=== PATIENT | female | born 1930 | race Hispanic/Latino ===

== ENCOUNTER 2018-06-07 11:49 | Inpatient (IN) | payer MEDICARE ==
[2018-06-07] MEDS ORDERED: Albuterol-Ipratrop 3 mg / 0.5 (3 ml) UD ONE ×2 (12:07→15:55)
[2018-06-07] MEDS ORDERED: Sodium Chloride 0.9% 1,000 ML IV STA (12:16)
[2018-06-07 12:35] LABS: VENOUS BLOOD GAS BASE EXCESS 1.6 mmol/L (0.0-2.0); VENOUS BLOOD GAS PCO2 48 mmHg (40-60); VENOUS BLOOD GAS PO2 27 mm/Hg (30-55); VENOUS BLOOD PH 7.37 (7.32-7.43)
[2018-06-07 12:44] LABS: BASO % 0.2 % (0.0-2.0); LYMPH # 0.7 K/uL (1.0-4.3); LYMPH % 4.9 % (20.0-40.0); MEAN CELL VOLUME 89.4 fl (81.0-99.0); MEAN CORPUSCULAR HEMOGLOBIN 29.5 pg (27.0-31.0); MEAN CORPUSCULAR HGB CONC 32.9 g/dL (33.0-37.0); MEAN PLATELET VOLUME 8.5 fl (7.2-11.7); MONO # 0.9 K/uL (0.0-0.8); MONO % 5.9 % (0.0-10.0); PLATELET COUNT 147 K/uL (130-400); RBC 4.41 Mil/uL (3.80-5.20); RED CELL DISTRIBUTION WIDTH 14.7 % (11.5-14.5); WHITE BLOOD COUNT 14.7 K/uL (4.8-10.8)
[2018-06-07] MEDS ORDERED: Azithromycin 500 MG in Sodium Chloride 0.9% 250 ML IVPB STA (12:44)
[2018-06-07] MEDS ORDERED: Albuterol-Ipratrop 3 mg / 0.5 (3 ml) UD INH STA (12:45)
[2018-06-07] MEDS ORDERED: Azithromycin 500 MG IV IVPB ONE (12:48)
--- NOTE | 2018-06-07 12:48 | ED PDOC ---
HPI: CCC, URI, Sore Throat Time Seen by Provider: 06/07/18 12:11 Chief Complaint (Nursing): Cough, Cold, Congestion Chief Complaint (Provider): Cough History Per: Patient History/Exam Limitations: no limitations Onset/Duration Of Symptoms: Days Current Symptoms Are (Timing): Still Present Additional Complaint(s): 87yo female, with history of hypertension, high cholesterol, diabetes, sent to ER via ambulance from her PMD's office for penumonia workup. Patient reports a 5 day history of cough and shortness of breath, went to see her PMD this morning and was sent here for further evaluation. Currently, patient denies any associated chest pain, nausea, vomiting, diarrhea or other discomfort. She denies a fever as well but states she hasn't checked her temperature. Patient is compliant with PMD follow up as well as her daily medications. PMD: Dr. Boyd Past Medical History Reviewed: Historical Data, Nursing Documentation, Vital Signs Vital Signs: Last Vital Signs Temp 99.3 F 06/07/18 11:52 Pulse 122 H 06/07/18 11:52 Resp 22 06/07/18 11:52 BP 144/62 06/07/18 11:52 Pulse Ox 99 06/07/18 11:52 Primary Care Provider: Bobby Kilgore - Medical History PMH: Diabetes, HTN, Hypercholesterolemia Denies: Chronic Kidney Disease - Surgical History Surgical History: No Surg Hx - Family History Family History: States: Unknown Family Hx - Home Medications Home Medications: Ambulatory Orders Medication Instructions Recorded Famotidine [Pepcid] 20 mg PO DAILY 10/16/14 Pioglitazone [Actos] 15 mg PO DAILY 10/16/14 Simvastatin [Zocor] 40 mg PO HS 10/16/14 Aspirin [Ecotrin] 81 mg PO DAILY 06/07/18 Gabapentin [Neurontin] 100 mg PO Q8 06/07/18 Multivitamin [Multi-Vitamin Daily] 1 tab PO DAILY 06/07/18 [place]-3 Fatty Acids/Fish Oil [Fish 1 cap PO DAILY 06/07/18 Oil 1,000 mg Capsule] amLODIPine [Norvasc] 10 mg PO DAILY 06/07/18 - Allergies Allergies/Adverse Reactions: Allergies Allergy/AdvReac Type Severity Reaction Status Date / Time No Known Allergies Allergy Verified 06/07/18 11:52 Review of Systems ROS Statement: Except As Marked, All Systems Reviewed And Found Negative Constitutional: Negative for: Fever Cardiovascular: Negative for: Chest Pain Respiratory: Positive for: Cough, Shortness of Breath Gastrointestinal: Negative for: Nausea, Vomiting Physical Exam - Reviewed Nursing Documentation Reviewed: Yes Vital Signs Reviewed: Yes - Physical Exam Appears: Positive for: Non-toxic Head Exam: Positive for: ATRAUMATIC, NORMAL INSPECTION, NORMOCEPHALIC Skin: Positive for: Normal Color Eye Exam: Positive for: Normal appearance Neck: Positive for: Supple Cardiovascular/Chest: Positive for: Tachycardia (regular rate) Respiratory: Positive for: Crackles (diffuse), Other (tachypneic) Gastrointestinal/Abdominal: Positive for: Soft Back: Positive for: Normal Inspection Extremity: Positive for: Normal ROM. Negative for: Pedal Edema Neurological/Psych: Positive for: Awake, Alert, Normal Tone - Laboratory Results Result Diagrams: 06/07/18 12:26 06/07/18 12:26 Lab Results: pO2 27 mm/Hg (30-55) L 06/07/18 12:18 VBG pH 7.37 (7.32-7.43) 06/07/18 12:18 VBG pCO2 48 mmHg (40-60) 06/07/18 12:18 VBG HCO3 24.9 mmol/L 06/07/18 12:18 VBG Total CO2 29.2 mmol/L (22-28) H 06/07/18 12:18 VBG O2 Sat (Calc) 58.4 % (40-65) 06/07/18 12:18 VBG Base Excess 1.6 mmol/L (0.0-2.0) 06/07/18 12:18 VBG Potassium 3.8 mmol/L (3.6-5.2) 06/07/18 12:18 Sodium 133.0 mmol/L (132-148) 06/07/18 12:18 Chloride 95.0 mmol/L (98-107) L 06/07/18 12:18 Glucose 174 mg/dL (65-105) H 06/07/18 12:18 Lactate 2.0 mmol/L (0.7-2.1) 06/07/18 12:18 FiO2 21.0 % 06/07/18 12:18 - ECG O2 Sat by Pulse Oximetry: 99 (RA) Pulse Ox Interpretation: Normal - Core Measure Core Measure Indicators: Code Sepsis - Critical Care Total Time (In Min): 60 Documented Critical Care: Time excludes all time spent performint seperately billable procedures Medical Decision Making Medical Decision Making: Workup for pneumonia Patient meets sepsis criteria due to tachypnea, tachycardia, and suspected source due of pneumonia -- Sepsis workup including VBG Patient started on gentle fluids opposed to bolus based on auscultation of fluid in lungs as well as cardiac risk Will increase fluids if BNP and CXR do not show signs of fluid overload 1246 WBC is 14 Lactate 2 Patient meets sepsis criteria but not severe sepsis Patient receiving nebulizer treatment as well as IV antibiotics, patient adm itted under hospitalist. [address] Garrett, who accepts patient for admission to telemetry ScribeAttestation: Documented byShruti Wu, acting as a scribe for Joy Stack MD. Provider ScribeAttestation: All medical record entries made by the Scribe were at my direction and personally dictated by me. I have reviewed the chart and agree that the record accurately reflects my personal performance of the history, physical exam, medical decision making, and the department course for this patient. I have also personally directed, reviewed, and agree with the discharge instructions and disposition. Disposition - Clinical Impression Clinical Impression: Cough, CAD (coronary artery disease), Pneumonia - Disposition Disposition Time: 13:10 Condition: GUARDED
[2018-06-07 12:51] LABS: INR 1.1; PROTHROMBIN TIME 12.7 Seconds (9.8-13.1)
[2018-06-07 13:01] LABS: BLOOD UREA NITROGEN 16 mg/dl (7-17); CALCIUM 9.4 mg/dL (8.4-10.2); GFR NON-AFRICAN AMERICAN > 60
[2018-06-07 13:13] LABS: B-TYPE NATRIURETIC PEPTIDE 764 pg/ml (0-900)
--- NOTE | 2018-06-07 13:17 | RAD ---
Date of service: 06/07/2018 HISTORY: possible admission COMPARISON: 10/16/2014 TECHNIQUE: 1 view obtained. FINDINGS: LUNGS: No active pulmonary disease. PLEURA: Nonspecific elevation of right hemidiaphragm. No pneumothorax or pleural effusion. CARDIOVASCULAR: No aortic atherosclerotic calcification present. Normal cardiac size. No pulmonary vascular congestion. OSSEOUS STRUCTURES: No significant abnormalities. VISUALIZED UPPER ABDOMEN: Normal. OTHER FINDINGS: None. IMPRESSION: Nonspecific elevation of right hemidiaphragm. Otherwise unremarkable.
[2018-06-07] MEDS ORDERED: cefTRIAXone (Rocephin) 1 gm Inj ONE (14:06)
--- NOTE | 2018-06-07 14:08 | CP.PCM.HP ---
History of Present Illness - History of Present Illness History of Present Illness: [place]: [id number] Pt is an 87 yo F with a pmhx of CAD ([place] 11 yrs ago as per chart), HTN, DM, HLD presented with SOB, productive cough yellow/mild bloody sputum, chest discomfort for 4-5 days, fever of 101 last night, also reported feeling tired and weak. Pt went to her PMD today who sent her here. Pt had a recent URI 2-3 weeks ago and reports she completed her antibiotics, reports she takes her medications. Denies nausea, vomiting, abdominal pain, diarrhea, constipation, dysuria. Pt mildly confused, at beside with son. PMD: Dr. Bobby Kilgore Code status: Unknown Full PMHX: CAD ([place] 11 yrs ago), HTN, DM, HLD Meds: Norvasc 10mg QD, ASA 81mg QD, Pepcid 20mg QD, Neurontin 100mg Q8h, Pioglitazone 15mg QD, Simvastatin 40mg PO HS, [place] 3 fish oil, Multivitamin Allergies: NKDA Fhx: Mom pnemonia at age 38 Surg hx: 2012-Stomach cellulitis abscess Social Hx: Denies tobacco or hx of tobacco, alcohol or drug use. ED course: WBC 14.7, VBG lactate 2, Troponin x1 neg, Pro BNP 764, CXR, nebulizer, ceftriaxone x1, azithromycin x1, IVF, EKG Present on Admission - Present on Admission Any Indicators Present on Admission: No History of DVT/PE: No History of Uncontrolled Diabetes: No Urinary Catheter: No Decubitus Ulcer Present: No Review of Systems - Review of Systems Systems not reviewed;Unavailable: Unstable Vital Signs - Constitutional Constitutional: Fatigue, Weakness - Cardiovascular Cardiovascular: Chest Pain - Respiratory Respiratory: Cough, Dyspnea, Wheezing Past Patient History - Infectious Disease Hx of Infectious Diseases: None - Tetanus Immunizations Tetanus Immunization: Unknown - Past Medical History & Family History Past Medical History?: Yes - Past Social History Smoking Status: Never Smoked Alcohol: None Drugs: Denies - CARDIAC Hx Hypercholesterolemia: Yes Hx Hypertension: Yes - PULMONARY Hx Respiratory Disorders: No - NEUROLOGICAL Hx Neurological Disorder: No - HEENT Hx HEENT Problems: No - RENAL Hx Chronic Kidney Disease: No - ENDOCRINE/METABOLIC Hx Endocrine Disorders: No - HEMATOLOGICAL/ONCOLOGICAL Hx Blood Disorders: No - INTEGUMENTARY Hx Dermatological Problems: No - MUSCULOSKELETAL/RHEUMATOLOGICAL Hx Musculoskeletal Disorders: No - GASTROINTESTINAL Hx Gastrointestinal Disorders: No - GENITOURINARY/GYNECOLOGICAL Hx Genitourinary Disorders: No - PSYCHIATRIC Hx Psychophysiologic Disorder: No Hx Substance Use: No - SURGICAL HISTORY Hx Surgeries: Yes Other/Comment: I&D of abdominal abscess, 2012 - ANESTHESIA Hx Anesthesia: Yes Hx Anesthesia Reactions: No Meds Allergies/Adverse Reactions: Allergies Allergy/AdvReac Type Severity Reaction Status Date / Time No Known Allergies Allergy Verified 06/07/18 11:52 Physical Exam - Constitutional Appears: Toxic, No Acute Distress - Head Exam Head Exam: ATRAUMATIC, NORMAL INSPECTION, NORMOCEPHALIC Additional comments: 4 L NC - Eye Exam Eye Exam: EOMI - ENT Exam ENT Exam: Mucous Membranes Moist - Respiratory Exam Respiratory Exam: Accessory Muscle Use, Rhonchi (Coarse), Wheezes, Stridor (expiratory). absent: Rales - Cardiovascular Exam Cardiovascular Exam: Tachycardia, +S1, +S2 - GI/Abdominal Exam GI & Abdominal Exam: Normal Bowel Sounds, Soft. absent: Tenderness - Extremities Exam Extremities exam: Positive for: normal inspection. Negative for: pedal edema - Neurological Exam Neurological exam: Alert Results - Vital Signs Recent Vital Signs: Last Vital Signs Temp 99.3 F 06/07/18 11:52 Pulse 122 H 06/07/18 11:52 Resp 22 06/07/18 11:52 BP 144/62 06/07/18 11:52 Pulse Ox 99 06/07/18 13:17 - Labs Result Diagrams: 06/07/18 12:26 06/07/18 12:26 Labs: Laboratory Results - last 24 hr 06/07/18 06/07/18 06/07/18 12:18 12:26 12:26 WBC 14.7 H RBC 4.41 Hgb 13.0 Hct 39.4 MCV 89.4 D MCH 29.5 MCHC 32.9 L RDW 14.7 H Plt Count 147 MPV 8.5 Neut % (Auto) 89.0 H Lymph % (Auto) 4.9 L [place] % (Auto) 5.9 Eos % (Auto) 0.0 Baso % (Auto) 0.2 Neut # (Auto) 13.0 H Lymph # (Auto) 0.7 L [place] # (Auto) 0.9 H Eos # (Auto) 0.0 Baso # (Auto) 0.0 PT INR APTT pO2 27 L VBG pH 7.37 VBG pCO2 48 VBG HCO3 24.9 VBG Total CO2 29.2 H VBG O2 Sat (Calc) 58.4 VBG Base Excess 1.6 VBG Potassium 3.8 Sodium 133.0 133 Chloride 95.0 L 95 L Glucose 174 H Lactate 2.0 FiO2 21.0 Potassium 3.8 Carbon Dioxide 25 Anion Gap 17 BUN 16 Creatinine 0.8 Est GFR ( Amer) > 60 Est GFR (Non-Af Amer) > 60 Random Glucose 165 H Calcium 9.4 Troponin I 0.0480 NT-Pro-B Natriuret Pep 764 Venous Blood Potassium 3.8 Influenza Typ A,B (EIA) 06/07/18 06/07/18 12:26 12:26 WBC RBC Hgb Hct MCV MCH MCHC RDW Plt Count MPV Neut % (Auto) Lymph % (Auto) [place] % (Auto) Eos % (Auto) Baso % (Auto) Neut # (Auto) Lymph # (Auto) [place] # (Auto) Eos # (Auto) Baso # (Auto) PT 12.7 INR 1.1 APTT 32.0 pO2 VBG pH VBG pCO2 VBG HCO3 VBG Total CO2 VBG O2 Sat (Calc) VBG Base Excess VBG Potassium Sodium Chloride Glucose Lactate FiO2 Potassium Carbon Dioxide Anion Gap BUN Creatinine Est GFR ( Amer) Est GFR (Non-Af Amer) Random Glucose Calcium Troponin I NT-Pro-B Natriuret Pep Venous Blood Potassium Influenza Typ A,B (EIA) Negative for flu a/b Assessment & Plan - Assessment and Plan (Free Text) Assessment: Pt is an 87 yo F with a pmhx of CAD ([place] 11 yrs ago as per chart), HTN, DM, HLD presented with SOB, productive cough yellow/mild bloody sputum, chest discomfort for 4-5 days, fever of 101 admitted for Pneumonia Sepsis (POA) secondary to pneumonia tachy 116, WBC 14.7, Bands 4, lactate 2 admit to tele, monitor VSS 2 L NC, Duonebs Q4 PRN, IVF's Ceftriaxone 1gm IVPB QD, Azithromycin 500mg IVPB QD, Mucinex, s/p ceftriaxone and azithromycin x1 CXR- non specific elevation of R hemidiaphragm, otherwise unremarkable Ordered Chest CT, Sputum cx, Blood cx, Troponins x2 F/u labs and Chest CT in AM Leukocytosis with Bandemia 2/2 to pneumonia WBC 14.7, Bands 4 F/u AM labs HTN chronic c/w home meds DM chronic, POC 165 sliding scale coverage accuchecks hypoglycemic protocol Ordered Hga1c c/w pioglitazone HLD chronic ordered lipid panel c/w home meds Diet Diabetic/heart healthy DVT PPX SCD now Lovenox 40mg SC in AM
[2018-06-07 14:12] LABS: ANISOCYTOSIS SLIGHT; BANDS 4 % (0-2); LYMPHOCYTE 3 % (20-50); MONOCYTE 7 % (0-10); NEUTROPHIL 86 % (42-75); PLATELET ESTIMATE NORMAL (NORMAL); TOTAL CELLS COUNTED 100
[2018-06-07] MEDS ORDERED: Sodium Chloride 3% for Inhalation 4 ML VIAL.NEB IH PRN (14:19)
[2018-06-07] MEDS ORDERED: Glucagon Recombinant 1 mg Inj IM PRN (14:21)
[2018-06-07] MEDS ORDERED: Dextrose 50% SYRINGE Inj (50 ml) IV PRN (14:21)
[2018-06-07] MEDS ORDERED: Sodium Chloride 0.9% 50 ML IV ONE (14:38)
[2018-06-07] MEDS ORDERED: Iodixanol 320 MG/ML 100 ML BOTTLE IV ONE (14:38)
--- NOTE | 2018-06-07 15:34 | CT ---
Date of service: 06/07/2018 PROCEDURE: CT Chest with contrast (Pulmonary Angiogram) HISTORY: Pneumonia COMPARISON: June 07, 2018. Single-view chest TECHNIQUE: Axial computed tomography images were obtained of the chest in the pulmonary arterial phase of enhancement. Coronal and sagittal reformatted images were created and reviewed. Intravenous contrast dose: 60 cc Visipaque 320. Mean Hounsfield value in the main pulmonary artery: 213.66 Radiation dose: Total exam DLP = 355.15 mGy-cm. This CT exam was performed using one or more of the following dose reduction techniques: Automated exposure control, adjustment of the mA and/or kV according to patient size, and/or use of iterative reconstruction technique. FINDINGS: PULMONARY ARTERIES: Unremarkable. No pulmonary embolism. AORTA: No acute findings. No thoracic aortic aneurysm. No atherosclerotic calcification or mural plaque present. LUNGS: Multifocal infiltrates including right upper lobe and multiple segments of the left lower lobe. PLEURAL SPACES: Unremarkable. No effusion or pneumothorax. HEART: Unremarkable. No cardiomegaly. No significant pericardial effusion. LYMPH NODES: No lymphadenopathy. BONES, CHEST WALL: Unremarkable. No fracture or destructive lesion OTHER FINDINGS: Unremarkable. IMPRESSION: Unremarkable CT pulmonary angiogram. No pulmonary embolus. Multifocal infiltrates most pronounced changes basilar segment left lower lobe. Additional right upper and right lower lobe infiltrates likely represent multifocal pneumonia.
[2018-06-07] MEDS: Albuterol-Ipratrop 3 mg / 0.5 (3 ml) UD INH PRN (15:58)
[2018-06-07 16:27] LABS: ABG ALLEN TEST YES; ARTERIAL BLOOD GAS HCO3 25.6 mmol/L (21-28); ARTERIAL BLOOD GAS HEMOGLOBIN 12.9 g/dL (11.7-17.4); ARTERIAL BLOOD GAS O2 CAPACITY 17.1 mL/dL (16-24); ARTERIAL BLOOD GAS O2 CONTENT 16.4 ML/dL (15-23); ARTERIAL BLOOD GAS O2 SAT 96.1 % (95-98); ARTERIAL BLOOD GAS PCO2 37 mm/Hg (35-45); ARTERIAL BLOOD GAS PH 7.44 (7.35-7.45); ARTERIAL BLOOD GAS PO2 57 mm/Hg (80-100); ARTERIAL BLOOD GAS TCO2 26.2 mmol/L (22-28)
[2018-06-07] MEDS: Insulin Regular 100 units/ml SC SCH ×2 (17:16→22:00)
[2018-06-07 17:19] LABS: SQUAMOUS EPITHIAL < 1 /hpf (0-5); URINE BILIRUBIN NEGATIVE (NEGATIVE); URINE BLOOD SMALL (NEGATIVE); URINE CLARITY CLEAR (Clear); URINE COLOR YELLOW (YELLOW); URINE GLUCOSE (UA) NEG (NEGATIVE); URINE LEUKOCYTE ESTERASE NEG Leu/uL (Negative); URINE PROTEIN 100 mg/dL (NEGATIVE); URINE UROBILINOGEN 0.2-1.0 mg/dL (0.2-1.0)
[2018-06-07] MEDS ORDERED: methylPREDNISolone 125 MG in Sodium Chloride 0.9% 50 ML IVPB ONE (17:32)
--- NOTE | 2018-06-07 18:59 | CARD ---
APPROVED REPORT Date of service: 06/07/2018 EKG Measurement Heart [id number] IN [id number] <Conclusion> Sinus tachycardia Non specific T-wave changes Abnormal ECG
[2018-06-07] MEDS: Albuterol-Ipratrop 3 mg / 0.5 (3 ml) UD INH SCH (19:31)
[2018-06-07] MEDS: guaiFENesin 600 mg ER Tab PO SCH (21:50)
[2018-06-08 05:26] LABS: BASO % 0.1 % (0.0-2.0); HEMOGLOBIN 12.6 g/dL (12.0-16.0); LYMPH # 1.2 K/uL (1.0-4.3); LYMPH % 6.5 % (20.0-40.0); MEAN CELL VOLUME 91.3 fl (81.0-99.0); MEAN CORPUSCULAR HEMOGLOBIN 29.7 pg (27.0-31.0); MEAN CORPUSCULAR HGB CONC 32.5 g/dL (33.0-37.0); MEAN PLATELET VOLUME 8.8 fl (7.2-11.7); MONO # 0.5 K/uL (0.0-0.8); MONO % 2.9 % (0.0-10.0); NEUT # 16.9 K/uL (1.8-7.0); NEUT % 90.5 % (50.0-75.0); RBC 4.26 Mil/uL (3.80-5.20); RED CELL DISTRIBUTION WIDTH 15.3 % (11.5-14.5); WHITE BLOOD COUNT 18.7 K/uL (4.8-10.8)
[2018-06-08 05:38] LABS: ALB/GLOB RATIO 1.4 (1.0-2.1); ALBUMIN 3.9 g/dL (3.5-5.0); ALT/SGPT 21 U/L (9-52); AST/SGOT 36 U/L (14-36); BLOOD UREA NITROGEN 22 mg/dl (7-17); CALCIUM 9.1 mg/dL (8.4-10.2); GFR NON-AFRICAN AMERICAN > 60; HDL CHOLESTEROL 48 MG/DL (30-70)
[2018-06-08 05:50] LABS: LDL CHOLESTEROL 54 mg/dL (0-129)
[2018-06-08] MEDS: Albuterol-Ipratrop 3 mg / 0.5 (3 ml) UD INH SCH ×4 (07:17→19:16)
[2018-06-08] MEDS: Insulin Regular 100 units/ml SC SCH ×3 (08:53→17:32)
[2018-06-08] MEDS: Enoxaparin 40 mg Syringe SC SCH (08:54)
[2018-06-08] MEDS: guaiFENesin 600 mg ER Tab PO SCH ×2 (08:54→21:29)
[2018-06-08] MEDS: Omega-3-Acid Ethyl Esters 1 GM Cap PO SCH (08:54)
[2018-06-08] MEDS: Pantoprazole 40 mg EC Tab PO SCH (08:56)
[2018-06-08] MEDS: Azithromycin 500 MG in Sodium Chloride 0.9% 250 ML IVPB SCH (08:57)
[2018-06-08] MEDS: Multivitamin With Minerals Tab PO SCH (08:57)
--- NOTE | 2018-06-08 12:02 | CP.PCM.PN ---
Subjective - Date & Time of Evaluation Date of Evaluation: 06/08/18 Time of Evaluation: 09:55 - Subjective Subjective: Patient seen and examined this AM, daughter is at bedside. Patient c/o feeling weaker ans as per daughter patient walks at home with cane. Denies YANCEY, fever, SOB at present. Objective - Vital Signs/Intake and Output Vital Signs (last 24 hours): Temp Pulse Resp BP Pulse Ox 96.9 F L 99 H 20 132/75 93 L 06/08/18 08:30 06/08/18 08:55 06/08/18 11:26 06/08/18 08:55 06/08/18 08:30 - Medications Medications: Current Medications Acetaminophen (Tylenol 325mg Tab) 650 mg PO Q6 PRN PRN Reason: Pain, Mild (1-3) Last Admin: 06/07/18 15:56 Dose: 650 mg Acetaminophen (Tylenol 325mg Tab) 650 mg PO Q6 PRN PRN Reason: Fever >100.4 F Albuterol/Ipratropium (Duoneb 3 Mg/0.5 Mg (3 Ml) Ud) 3 ml INH RQ4 PRN PRN Reason: Shortness of Breath Last Admin: 06/07/18 15:58 Dose: 3 ml Albuterol/Ipratropium (Duoneb 3 Mg/0.5 Mg (3 Ml) Ud) 3 ml INH RQID OWEN Last Admin: 06/08/18 11:26 Dose: 3 ml Amlodipine Besylate (Norvasc) 10 mg PO DAILY [facility] Last Admin: 06/08/18 08:55 Dose: 10 mg Aspirin (Ecotrin) 81 mg PO DAILY [facility] Last Admin: 06/08/18 08:53 Dose: 81 mg Atorvastatin Calcium (Lipitor) 20 mg PO HS [facility] Last Admin: 06/07/18 21:50 Dose: 20 mg Dextrose (Dextrose 50% Inj) 0 ml IV STAT PRN; Protocol PRN Reason: Hypoglycemia Protocol Dextrose (Glutose 15) 0 gm PO ONCE PRN; Protocol PRN Reason: Hypoglycemia Protocol Enoxaparin Sodium (Lovenox) 40 mg SC DAILY [facility]; Protocol Last Admin: 06/08/18 08:54 Dose: 40 mg Famotidine (Pepcid) 20 mg PO DAILY [facility] Last Admin: 06/08/18 08:56 Dose: 20 mg Gabapentin (Neurontin) 100 mg PO Q8 [facility] Last Admin: 06/08/18 08:55 Dose: 100 mg Glucagon (Glucagen Diagnostic Kit) 0 mg IM STAT PRN; Protocol PRN Reason: Hypoglycemia Protocol Guaifenesin (Mucinex La) 600 mg PO Q12 [facility] Last Admin: 06/08/18 08:54 Dose: 600 mg Ceftriaxone Sodium 1 gm/ (Sodium Chloride) 100 mls @ 100 mls/hr IVPB DAILY [facility]; Protocol Last Admin: 06/08/18 08:57 Dose: 100 mls/hr Azithromycin 500 mg/ Sodium (Chloride) 250 mls @ 250 mls/hr IVPB DAILY [facility]; Protocol Last Admin: 06/08/18 08:57 Dose: 250 mls/hr Insulin Human Regular (Humulin R) 0 units SC ACHS [facility]; Protocol Last Admin: 06/08/18 08:53 Dose: 1 unit Multivitamins/Minerals (Therapeutic-M Tab) 1 tab PO DAILY [facility] Last Admin: 06/08/18 08:57 Dose: 1 tab [id number] Ethyl Esters (Lovaza) 1 gm PO DAILY [facility] Last Admin: 06/08/18 08:54 Dose: 1 gm Ondansetron HCl (Zofran Inj) 4 mg IVP Q6 PRN PRN Reason: Nausea/Vomiting Pantoprazole Sodium (Protonix Ec Tab) 40 mg PO DAILY [facility] Last Admin: 06/08/18 08:56 Dose: 40 mg Pioglitazone HCl (Actos) 15 mg PO DAILY [facility] Last Admin: 06/08/18 08:52 Dose: 15 mg - Labs Labs: 06/08/18 04:20 06/08/18 04:20 PT 12.7 Seconds (9.8-13.1) 06/07/18 12:26 INR 1.1 06/07/18 12:26 APTT 32.0 Seconds (25.6-37.1) 06/07/18 12:26 - Constitutional Appears: No Acute Distress - Head Exam Head Exam: ATRAUMATIC, NORMOCEPHALIC - Eye Exam Eye Exam: EOMI - ENT Exam ENT Exam: Mucous Membranes Moist - Respiratory Exam Respiratory Exam: Decreased Breath Sounds (BS decreased to the bases), Rales (bilateral rales noted) - Cardiovascular Exam Cardiovascular Exam: REGULAR RHYTHM, +S1, +S2 - GI/Abdominal Exam GI & Abdominal Exam: Soft. absent: Tenderness - Extremities Exam Extremities Exam: absent: Pedal Edema - Neurological Exam Neurological Exam: Alert, Awake - Skin Skin Exam: Normal Color, Warm Assessment and Plan - Assessment and Plan (Free Text) Assessment: Pt is an 87 yo F with a pmhx of CAD ([place] 11 yrs ago as per chart), HTN, DM, HLD presented with SOB, productive cough yellow/mild bloody sputum, chest discomfort for 4-5 days, fever of 101 admitted for Pneumonia Admitted to telemetry for Acute hypoxemic respiratory failure, Sepsis, Community acquired Pneumonia( multifocal) Plan: #. Acute Hypoxemic respiratory failure Improving today patient was on high flow 10 L FIO2 50 % , will start O2 2 L NC and f/u Duonebs Q4 RTC 1 dose given Solumedrol [address] chest with IV contrast revealed multifocal PNA, LEft base infiltrate and RLL infiltrate (see report) Pulmonary consult Dr Daly, recommendtion appreciated #. Sepsis (present in admission) most likely secondary to PNA On admission: tachy 116, leukocytosis WBC 14.7, Bands 4, lactate 2, today WBC are elevated (18.7) but patient received solumedrol 125 x1 Clinically improving, afebrile, VS improving tachycardia resolving F/u BC, UC ,Sputum C pending C/W Rocephin and Zithromax IV F/U CBC, BMP in AM #.CAP cultures sent, pending results -advaced to O2 2 L NC Continue Rocephin and Zithromax IV -F/U Serology for Mycoplasma, Lehionella and Strep PNA #.HTN C/w home meds Monitor in telemetry #. DM accuchecks, Insulin coverage , diabetic diet chronic, POC 165 sliding scale coverage accuchecks hypoglycemic protocol Hga1c 6.3 c/w pioglitazone #HLD chronic ordered lipid panel c/w home meds #Diet Diabetic/heart healthy #DVT PPX SCD now Lovenox 40mg SC QD
[2018-06-09 06:02] LABS: HEMOGLOBIN 11.3 g/dL (12.0-16.0); MEAN CELL VOLUME 91.2 fl (81.0-99.0); MEAN CORPUSCULAR HEMOGLOBIN 30.1 pg (27.0-31.0); RBC 3.76 Mil/uL (3.80-5.20); RED CELL DISTRIBUTION WIDTH 15.4 % (11.5-14.5); WHITE BLOOD COUNT 14.6 K/uL (4.8-10.8)
[2018-06-09 06:07] LABS: BLOOD UREA NITROGEN 30 mg/dl (7-17); CALCIUM 8.1 mg/dL (8.4-10.2); GFR NON-AFRICAN AMERICAN > 60
[2018-06-09] MEDS: Albuterol-Ipratrop 3 mg / 0.5 (3 ml) UD INH SCH ×4 (07:59→19:26)
[2018-06-09] MEDS: Omega-3-Acid Ethyl Esters 1 GM Cap PO SCH (08:30)
[2018-06-09] MEDS: Insulin Regular 100 units/ml SC SCH ×4 (08:30→22:02)
[2018-06-09] MEDS: Enoxaparin 40 mg Syringe SC SCH (08:31)
[2018-06-09] MEDS: guaiFENesin 600 mg ER Tab PO SCH ×2 (08:32→21:02)
[2018-06-09] MEDS: Pantoprazole 40 mg EC Tab PO SCH (08:33)
[2018-06-09] MEDS: Azithromycin 500 MG in Sodium Chloride 0.9% 250 ML IVPB SCH (08:34)
[2018-06-09] MEDS: Multivitamin With Minerals Tab PO SCH (08:34)
--- NOTE | 2018-06-09 10:24 | CP.PCM.PN ---
Subjective - Date & Time of Evaluation Date of Evaluation: 06/09/18 Time of Evaluation: 09:00 - Subjective Subjective: PAtient seen and examined this AM, NAD. Patient reports feeling better, admits still coughing and feeling congested. Otherwise patient denies YANCEY, fever, N/V or other acute medical complaint at this time. Patient remains afebrile. At present patient using High flow Oxigen NC, we are planning to advance to NC 3L and monitor. Continue with Antibiotic Azithro and Rocephin, will require at least 1 week IV treatment. Objective - Vital Signs/Intake and Output Vital Signs (last 24 hours): Temp Pulse Resp BP Pulse Ox 98.6 F 100 H 20 124/67 94 L 06/09/18 08:24 06/09/18 08:32 06/09/18 08:24 06/09/18 08:32 06/09/18 08:24 - Medications Medications: Current Medications Acetaminophen (Tylenol 325mg Tab) 650 mg PO Q6 PRN PRN Reason: Pain, Mild (1-3) Last Admin: 06/07/18 15:56 Dose: 650 mg Acetaminophen (Tylenol 325mg Tab) 650 mg PO Q6 PRN PRN Reason: Fever >100.4 F Albuterol/Ipratropium (Duoneb 3 Mg/0.5 Mg (3 Ml) Ud) 3 ml INH RQ4 PRN PRN Reason: Shortness of Breath Last Admin: 06/07/18 15:58 Dose: 3 ml Albuterol/Ipratropium (Duoneb 3 Mg/0.5 Mg (3 Ml) Ud) 3 ml INH RQID [facility] Last Admin: 06/09/18 07:59 Dose: 3 ml Amlodipine Besylate (Norvasc) 10 mg PO DAILY [facility] Last Admin: 06/09/18 08:32 Dose: 10 mg Aspirin (Ecotrin) 81 mg PO DAILY [facility] Last Admin: 06/09/18 08:30 Dose: 81 mg Atorvastatin Calcium (Lipitor) 20 mg PO HS [facility] Last Admin: 06/08/18 21:29 Dose: 20 mg Dextrose (Dextrose 50% Inj) 0 ml IV STAT PRN; Protocol PRN Reason: Hypoglycemia Protocol Dextrose (Glutose 15) 0 gm PO ONCE PRN; Protocol PRN Reason: Hypoglycemia Protocol Enoxaparin Sodium (Lovenox) 40 mg SC DAILY [facility]; Protocol Last Admin: 06/09/18 08:31 Dose: 40 mg Famotidine (Pepcid) 20 mg PO DAILY [facility] Last Admin: 06/09/18 08:33 Dose: 20 mg Gabapentin (Neurontin) 100 mg PO Q8 [facility] Last Admin: 06/09/18 08:32 Dose: 100 mg Glucagon (Glucagen Diagnostic Kit) 0 mg IM STAT PRN; Protocol PRN Reason: Hypoglycemia Protocol Guaifenesin (Mucinex La) 600 mg PO Q12 [facility] Last Admin: 06/09/18 08:32 Dose: 600 mg Ceftriaxone Sodium 1 gm/ (Sodium Chloride) 100 mls @ 100 mls/hr IVPB DAILY [facility]; Protocol Last Admin: 06/09/18 08:34 Dose: 100 mls/hr Azithromycin 500 mg/ Sodium (Chloride) 250 mls @ 250 mls/hr IVPB DAILY [facility]; Protocol Last Admin: 06/09/18 08:34 Dose: 250 mls/hr Insulin Human Regular (Humulin R) 0 units SC ACHS [facility]; Protocol Last Admin: 06/09/18 08:30 Dose: Not Given Multivitamins/Minerals (Therapeutic-M Tab) 1 tab PO DAILY [facility] Last Admin: 06/09/18 08:34 Dose: 1 tab Nmerd-2-Kmbn Ethyl Esters (Lovaza) 1 gm PO DAILY [facility] Last Admin: 06/09/18 08:30 Dose: 1 gm Ondansetron HCl (Zofran Inj) 4 mg IVP Q6 PRN PRN Reason: Nausea/Vomiting Pantoprazole Sodium (Protonix Ec Tab) 40 mg PO DAILY [facility] Last Admin: 06/09/18 08:33 Dose: 40 mg - Labs Labs: 06/09/18 04:40 06/09/18 04:40 PT 12.7 Seconds (9.8-13.1) 06/07/18 12:26 INR 1.1 06/07/18 12:26 APTT 32.0 Seconds (25.6-37.1) 06/07/18 12:26 - Constitutional Appears: No Acute Distress - Head Exam Head Exam: ATRAUMATIC, NORMOCEPHALIC - Eye Exam Eye Exam: EOMI - ENT Exam ENT Exam: Mucous Membranes Moist - Neck Exam Neck Exam: Full ROM - Respiratory Exam Respiratory Exam: Rales, Wheezes Additional comments: Patient still sounds congested, diffuse rales and wheezing heard bilateral - Cardiovascular Exam Cardiovascular Exam: REGULAR RHYTHM, +S1, +S2 - GI/Abdominal Exam GI & Abdominal Exam: Soft. absent: Tenderness - Extremities Exam Extremities Exam: absent: Pedal Edema - Neurological Exam Neurological Exam: Alert, Awake, Oriented x3 - Psychiatric Exam Psychiatric exam: Normal Affect - Skin Skin Exam: Normal Color, Warm Assessment and Plan - Assessment and Plan (Free Text) Assessment: Pt is an 87 yo F with a pmhx of CAD ([place] 11 yrs ago as per chart), HTN, DM, HLD presented with SOB, productive cough yellow/mild bloody sputum, chest discomfort for 4-5 days, fever of 101 admitted for Pneumonia Admitted to telemetry for Acute hypoxemic respiratory failure, Sepsis, Community acquired Pneumonia( multifocal) Plan: #. Acute Hypoxemic respiratory failure Improving today patient was on high flow 10 L FIO2 50 % , will start O2 2 L NC and f/u Duonebs Q4 RTC 1 dose given Solumedrol 125 mg IV on admission CT chest with IV contrast revealed multifocal PNA, LEft base infiltrate and RLL infiltrate (see report) Pulmonary consult Dr Daly, recommendtion appreciated #. Sepsis (present in admission) -most likely secondary to PNA -On admission: tachy 116, leukocytosis WBC 14.7, Bands 4, lactate 2. -Leukocytosis improving slowly WBC 14.6 today (patient received solumedrol 125 x1 contributing to marginalization factor) -Clinically improving, afebrile, VS improving tachycardia-HR 100s -F/u BC, UC both no growth in first 24 h -Sputum C pending -C/W Rocephin and Zithromax IV (today day 3 since admission), Patient will need 1 week of IV antibiotic -F/U CBC, BMP in AM #.CAP -Pending Sputum C -advaced to O2 2 L NC -Continue Rocephin and Zithromax IV, total 1 week -F/U Serology Lehionella and Strep PNA - Mycoplasma serology negative #.HTN C/w home meds Monitor in telemetry #. DM accuchecks, Insulin coverage , diabetic diet chronic, POC 165 sliding scale coverage accuchecks hypoglycemic protocol Hga1c 6.3 c/w pioglitazone #HLD chronic ordered lipid panel c/w home meds #Diet Diabetic/heart healthy #DVT PPX SCD now Lovenox 40mg SC QD
--- NOTE | 2018-06-09 11:30 | CP.PCM.CON ---
Past Patient History - Infectious Disease Hx of Infectious Diseases: None - Tetanus Immunizations Tetanus Immunization: Unknown - Past Medical History & Family History Past Medical History?: Yes - Past Social History Smoking Status: Never Smoked - CARDIAC Hx Hypercholesterolemia: Yes Hx Hypertension: Yes - PULMONARY Hx Respiratory Disorders: No - NEUROLOGICAL Hx Neurological Disorder: No - HEENT Hx HEENT Problems: No - RENAL Hx Chronic Kidney Disease: No - ENDOCRINE/METABOLIC Hx Endocrine Disorders: No - HEMATOLOGICAL/ONCOLOGICAL Hx Blood Disorders: No - INTEGUMENTARY Hx Dermatological Problems: No - MUSCULOSKELETAL/RHEUMATOLOGICAL Hx Musculoskeletal Disorders: No Hx Falls: No - GASTROINTESTINAL Hx Gastrointestinal Disorders: No - GENITOURINARY/GYNECOLOGICAL Hx Genitourinary Disorders: No - PSYCHIATRIC Hx Psychophysiologic Disorder: No Hx Substance Use: No - SURGICAL HISTORY Hx Surgeries: Yes Other/Comment: I&D of abdominal abscess, 2012 - ANESTHESIA Hx Anesthesia: Yes Hx Anesthesia Reactions: No Meds Allergies/Adverse Reactions: Allergies Allergy/AdvReac Type Severity Reaction Status Date / Time No Known Allergies Allergy Verified 06/07/18 11:52 - Medications Medications: Current Medications Acetaminophen (Tylenol 325mg Tab) 650 mg PO Q6 PRN PRN Reason: Pain, Mild (1-3) Last Admin: 06/07/18 15:56 Dose: 650 mg Acetaminophen (Tylenol 325mg Tab) 650 mg PO Q6 PRN PRN Reason: Fever >100.4 F Albuterol/Ipratropium (Duoneb 3 Mg/0.5 Mg (3 Ml) Ud) 3 ml INH RQ4 PRN PRN Reason: Shortness of Breath Last Admin: 06/07/18 15:58 Dose: 3 ml Albuterol/Ipratropium (Duoneb 3 Mg/0.5 Mg (3 Ml) Ud) 3 ml INH RQID [facility] Last Admin: 06/09/18 11:06 Dose: 3 ml Amlodipine Besylate (Norvasc) 10 mg PO DAILY [facility] Last Admin: 06/09/18 08:32 Dose: 10 mg Aspirin (Ecotrin) 81 mg PO DAILY [facility] Last Admin: 06/09/18 08:30 Dose: 81 mg Atorvastatin Calcium (Lipitor) 20 mg PO HS [facility] Last Admin: 06/08/18 21:29 Dose: 20 mg Dextrose (Dextrose 50% Inj) 0 ml IV STAT PRN; Protocol PRN Reason: Hypoglycemia Protocol Dextrose (Glutose 15) 0 gm PO ONCE PRN; Protocol PRN Reason: Hypoglycemia Protocol Enoxaparin Sodium (Lovenox) 40 mg SC DAILY [facility]; Protocol Last Admin: 06/09/18 08:31 Dose: 40 mg Famotidine (Pepcid) 20 mg PO DAILY [facility] Last Admin: 06/09/18 08:33 Dose: 20 mg Gabapentin (Neurontin) 100 mg PO Q8 [facility] Last Admin: 06/09/18 08:32 Dose: 100 mg Glucagon (Glucagen Diagnostic Kit) 0 mg IM STAT PRN; Protocol PRN Reason: Hypoglycemia Protocol Guaifenesin (Mucinex La) 600 mg PO Q12 [facility] Last Admin: 06/09/18 08:32 Dose: 600 mg Ceftriaxone Sodium 1 gm/ (Sodium Chloride) 100 mls @ 100 mls/hr IVPB DAILY [facility]; Protocol Last Admin: 06/09/18 08:34 Dose: 100 mls/hr Azithromycin 500 mg/ Sodium (Chloride) 250 mls @ 250 mls/hr IVPB DAILY [facility]; Protocol Last Admin: 06/09/18 08:34 Dose: 250 mls/hr Insulin Human Regular (Humulin R) 0 units SC ACHS [facility]; Protocol Last Admin: 06/09/18 08:30 Dose: Not Given Multivitamins/Minerals (Therapeutic-M Tab) 1 tab PO DAILY [facility] Last Admin: 06/09/18 08:34 Dose: 1 tab Eudoy-3-Uoxc Ethyl Esters (Lovaza) 1 gm PO DAILY [facility] Last Admin: 06/09/18 08:30 Dose: 1 gm Ondansetron HCl (Zofran Inj) 4 mg IVP Q6 PRN PRN Reason: Nausea/Vomiting Pantoprazole Sodium (Protonix Ec Tab) 40 mg PO DAILY [facility] Last Admin: 06/09/18 08:33 Dose: 40 mg Results - Vital Signs Recent Vital Signs: Last Vital Signs Temp 98.6 F 06/09/18 08:24 Pulse 100 H 06/09/18 10:24 Resp 20 06/09/18 08:24 BP 124/67 06/09/18 08:32 Pulse Ox 95 06/09/18 10:24 - Labs Result Diagrams: 06/09/18 04:40 06/09/18 04:40 Labs: Laboratory Results - last 24 hr 06/08/18 06/08/18 06/08/18 04:20 11:28 14:40 WBC RBC Hgb Hct MCV MCH MCHC RDW Plt Count Sodium Potassium Chloride Carbon Dioxide Anion Gap BUN Creatinine Est GFR ( Amer) Est GFR (Non-Af Amer) POC Glucose (mg/dL) 201 H Random Glucose Hemoglobin A1c 6.3 Calcium Mycoplasma pneumon IgM Negative 06/08/18 06/08/18 06/09/18 15:59 21:40 04:40 WBC 14.6 H RBC 3.76 L Hgb 11.3 L Hct 34.3 MCV 91.2 MCH 30.1 MCHC 33.0 RDW 15.4 H Plt Count 150 Sodium Potassium Chloride Carbon Dioxide Anion Gap BUN Creatinine Est GFR ( Amer) Est GFR (Non-Af Amer) POC Glucose (mg/dL) 187 H 149 H Random Glucose Hemoglobin A1c Calcium Mycoplasma pneumon IgM 06/09/18 06/09/18 06/09/18 04:40 05:00 11:04 WBC RBC Hgb Hct MCV MCH MCHC RDW Plt Count Sodium 137 Potassium 4.2 Chloride 98 Carbon Dioxide 29 Anion Gap 14 BUN 30 H Creatinine 0.8 Est GFR ( Amer) > 60 Est GFR (Non-Af Amer) > 60 POC Glucose (mg/dL) 118 H 130 H Random Glucose 103 Hemoglobin A1c Calcium 8.1 L Mycoplasma pneumon IgM Assessment & Plan (1) Pneumonia, primary atypical Status: Acute Priority: High (2) Sepsis Status: Acute Priority: High - Date & Time Date: 06/09/18 Time: 11:28
[2018-06-09] MEDS: Albuterol-Ipratrop 3 mg / 0.5 (3 ml) UD INH PRN (23:31)
[2018-06-10 05:35] LABS: HEMOGLOBIN 11.2 g/dL (12.0-16.0); MEAN CELL VOLUME 90.5 fl (81.0-99.0); MEAN CORPUSCULAR HEMOGLOBIN 30.3 pg (27.0-31.0); MEAN CORPUSCULAR HGB CONC 33.5 g/dL (33.0-37.0); RBC 3.71 Mil/uL (3.80-5.20); RED CELL DISTRIBUTION WIDTH 15.4 % (11.5-14.5)
[2018-06-10 05:50] LABS: BLOOD UREA NITROGEN 18 mg/dl (7-17); CALCIUM 8.5 mg/dL (8.4-10.2); GFR NON-AFRICAN AMERICAN > 60
[2018-06-10] MEDS: Insulin Regular 100 units/ml SC SCH ×3 (06:44→16:59)
[2018-06-10] MEDS: Albuterol-Ipratrop 3 mg / 0.5 (3 ml) UD INH SCH ×4 (08:01→19:25)
--- NOTE | 2018-06-10 09:23 | CP.PCM.PN ---
<Jakemariela RussellMaureen - Last Filed: 06/10/18 10:18> Subjective - Date & Time of Evaluation Date of Evaluation: 06/10/18 Time of Evaluation: 08:45 - Subjective Subjective: Patient seen and examined this AM, NAD. Patient is having breakfast using 3L Ox NC and teolerating it well sats 95%. Patient states feeling better, still coughing with poor sputum production. Remains afebrile. On IV antibiotic Azithro and Rocephin going into day 4 today, will require at least 1 week IV treatment. Objective - Vital Signs/Intake and Output Vital Signs (last 24 hours): Temp Pulse Resp BP Pulse Ox 98.1 F 96 H 18 132/70 96 06/10/18 07:41 06/10/18 07:41 06/10/18 07:41 06/10/18 07:41 06/10/18 07:41 - Medications Medications: Current Medications Acetaminophen (Tylenol 325mg Tab) 650 mg PO Q6 PRN PRN Reason: Pain, Mild (1-3) Last Admin: 06/07/18 15:56 Dose: 650 mg Acetaminophen (Tylenol 325mg Tab) 650 mg PO Q6 PRN PRN Reason: Fever >100.4 F Albuterol/Ipratropium (Duoneb 3 Mg/0.5 Mg (3 Ml) Ud) 3 ml INH RQ4 PRN PRN Reason: Shortness of Breath Last Admin: 06/09/18 23:31 Dose: 3 ml Albuterol/Ipratropium (Duoneb 3 Mg/0.5 Mg (3 Ml) Ud) 3 ml INH RQID [facility] Last Admin: 06/10/18 08:01 Dose: 3 ml Amlodipine Besylate (Norvasc) 10 mg PO DAILY [facility] Last Admin: 06/09/18 08:32 Dose: 10 mg Aspirin (Ecotrin) 81 mg PO DAILY [facility] Last Admin: 06/09/18 08:30 Dose: 81 mg Atorvastatin Calcium (Lipitor) 20 mg PO HS [facility] Last Admin: 06/09/18 21:02 Dose: 20 mg Dextrose (Dextrose 50% Inj) 0 ml IV STAT PRN; Protocol PRN Reason: Hypoglycemia Protocol Dextrose (Glutose 15) 0 gm PO ONCE PRN; Protocol PRN Reason: Hypoglycemia Protocol Enoxaparin Sodium (Lovenox) 40 mg SC DAILY [facility]; Protocol Last Admin: 06/09/18 08:31 Dose: 40 mg Famotidine (Pepcid) 20 mg PO DAILY [facility] Last Admin: 06/09/18 08:33 Dose: 20 mg Gabapentin (Neurontin) 100 mg PO Q8 [facility] Last Admin: 06/10/18 00:01 Dose: 100 mg Glucagon (Glucagen Diagnostic Kit) 0 mg IM STAT PRN; Protocol PRN Reason: Hypoglycemia Protocol Guaifenesin (Mucinex La) 600 mg PO Q12 [facility] Last Admin: 06/09/18 21:02 Dose: 600 mg Ceftriaxone Sodium 1 gm/ (Sodium Chloride) 100 mls @ 100 mls/hr IVPB DAILY [facility]; Protocol Last Admin: 06/09/18 08:34 Dose: 100 mls/hr Azithromycin 500 mg/ Sodium (Chloride) 250 mls @ 250 mls/hr IVPB DAILY [facility]; Pr otocol Last Admin: 06/09/18 08:34 Dose: 250 mls/hr Insulin Human Regular (Humulin R) 0 units SC ACHS [facility]; Protocol Last Admin: 06/10/18 06:44 Dose: Not Given Multivitamins/Minerals (Therapeutic-M Tab) 1 tab PO DAILY [facility] Last Admin: 06/09/18 08:34 Dose: 1 tab Fvxyx-5-Acri Ethyl Esters (Lovaza) 1 gm PO DAILY [facility] Last Admin: 06/09/18 08:30 Dose: 1 gm Ondansetron HCl (Zofran Inj) 4 mg IVP Q6 PRN PRN Reason: Nausea/Vomiting Pantoprazole Sodium (Protonix Ec Tab) 40 mg PO DAILY [facility] Last Admin: 06/09/18 08:33 Dose: 40 mg - Labs Labs: 06/10/18 05:05 06/10/18 05:05 PT 12.7 Seconds (9.8-13.1) 06/07/18 12:26 INR 1.1 06/07/18 12:26 APTT 32.0 Seconds (25.6-37.1) 06/07/18 12:26 - Additional Findings Additional findings: - Head Exam Head Exam: ATRAUMATIC, NORMOCEPHALIC - Eye Exam Eye Exam: EOMI - ENT Exam ENT Exam: Mucous Membranes Moist - Neck Exam Neck Exam: Full ROM - Respiratory Exam Respiratory Exam: Rales, Wheezes Additional comments: Patient sounds congested, diffuse rales heard bilateral, some rhonchi - Cardiovascular Exam Cardiovascular Exam: REGULAR RHYTHM, +S1, +S2 - GI/Abdominal Exam GI & Abdominal Exam: Soft. absent: Tenderness - Extremities Exam Extremities Exam: absent: Pedal Edema - Neurological Exam Neurological Exam: Alert, Awake, Oriented x3 - Psychiatric Exam Psychiatric exam: Normal Affect - Skin Skin Exam: Normal Color, Warm Assessment and Plan - Assessment and Plan (Free Text) Assessment: Pt is an 87 yo F with a pmhx of CAD (CT 11 yrs ago as per chart), HTN, DM, HLD presented with SOB, productive cough yellow/mild bloody sputum, chest discomfort for 4-5 days, fever of 101 admitted for Pneumonia Admitted to telemetry for Acute hypoxemic respiratory failure, Sepsis, Community acquired Pneumonia( multifocal) Plan: #.CAP -Pending Sputum C -advaced to O2 3 L NC -Continue Rocephin and Zithromax IV, total 1 week -F/U Serology Lehionella and Strep PNA -Influenza a/b negative - Mycoplasma, legionella serology negative -anticipate transfer to TCU for continue IV antbx and rehab #. Acute Hypoxemic respiratory failure Improving today patient was on high flow 10 L FIO2 50 % , now on O2 3 L NC sats today 95% Duonebs Q4 RTC 1 dose given Solumedrol 125 mg IV on admission CT chest with IV contrast revealed multifocal PNA, LEft base infiltrate and RLL infiltrate (see report) Pulmonary consult Dr Daly, recommendtion appreciated #Deconditioning secondary to CAP, Hospitalization -PT/OT -Plan to TCU when stable #. Sepsis (present in admission) -Leukocytosis resolved WBC 7.0 today (On admission: tachy 116, leukocytosis WBC 14.7, Bands 4, lactate 2) -most likely secondary to PNA -Clinically improving, afebrile, VS improving tachycardia-HR 90s -F/u BC, UC both no growth in first 24 h -Sputum C pending, unable to collect due to poor suptum production -C/W Rocephin and Zithromax IV (today day 4), Patient will need 1 week of IV antibiotic -F/U CBC, BMP in AM #.HTN C/w home meds Monitor in telemetry #. DM accuchecks, Insulin coverage , diabetic diet chronic, POC 165 sliding scale coverage accuchecks hypoglycemic protocol Hga1c 6.3 c/w pioglitazone #HLD chronic ordered lipid panel c/w home meds #Diet Diabetic/heart healthy #DVT PPX SCD now Lovenox 40mg SC QD <Charlette Barrett Anna - Last Filed: 06/10/18 16:47> Objective - Vital Signs/Intake and Output Vital Signs (last 24 hours): Temp Pulse Resp BP Pulse Ox 98 F 84 18 130/78 96 06/10/18 12:13 06/10/18 12:13 06/10/18 12:13 06/10/18 12:13 06/10/18 12:13 - Medications Medications: Current Medications Acetaminophen (Tylenol 325mg Tab) 650 mg PO Q6 PRN PRN Reason: Pain, Mild (1-3) Last Admin: 06/07/18 15:56 Dose: 650 mg Acetaminophen (Tylenol 325mg Tab) 650 mg PO Q6 PRN PRN Reason: Fever >100.4 F Albuterol/Ipratropium (Duoneb 3 Mg/0.5 Mg (3 Ml) Ud) 3 ml INH RQ4 PRN PRN Reason: Shortness of Breath Last Admin: 06/09/18 23:31 Dose: 3 ml Albuterol/Ipratropium (Duoneb 3 Mg/0.5 Mg (3 Ml) Ud) 3 ml INH RQID [facility] Last Admin: 06/10/18 11:44 Dose: 3 ml Amlodipine Besylate (Norvasc) 10 mg PO DAILY [facility] Last Admin: 06/10/18 09:47 Dose: 10 mg Aspirin (Ecotrin) 81 mg PO DAILY [facility] Last Admin: 06/10/18 09:46 Dose: 81 mg Atorvastatin Calcium (Lipitor) 20 mg PO HS [facility] Last Admin: 06/09/18 21:02 Dose: 20 mg Dextrose (Dextrose 50% Inj) 0 ml IV STAT PRN; Protocol PRN Reason: Hypoglycemia Protocol Dextrose (Glutose 15) 0 gm PO ONCE PRN; Protocol PRN Reason: Hypoglycemia Protocol Enoxaparin Sodium (Lovenox) 40 mg SC DAILY [facility]; Protocol Last Admin: 06/10/18 09:46 Dose: 40 mg Famotidine (Pepcid) 20 mg PO DAILY [facility] Last Admin: 06/10/18 09:49 Dose: 20 mg Gabapentin (Neurontin) 100 mg PO Q8 [facility] Last Admin: 06/10/18 09:47 Dose: 100 mg Glucagon (Glucagen Diagnostic Kit) 0 mg IM STAT PRN; Protocol PRN Reason: Hypoglycemia Protocol Guaifenesin/Dextromethorphan (Mucinex-Dm 600-30 Mg) 1 tab PO Q12H [facility] Last Admin: 06/10/18 13:04 Dose: 1 tab Ceftriaxone Sodium 1 gm/ (Sodium Chloride) 100 mls @ 100 mls/hr IVPB DAILY [facility]; Protocol Last Admin: 06/10/18 09:49 Dose: 100 mls/hr Azithromycin 500 mg/ Sodium (Chloride) 250 mls @ 250 mls/hr IVPB DAILY [facility]; Protocol Last Admin: 06/10/18 09:50 Dose: 250 mls/hr Insulin Human Regular (Humulin R) 0 units SC ACHS [facility]; Protocol Last Admin: 06/10/18 13:05 Dose: 1 unit Multivitamins/Minerals (Therapeutic-M Tab) 1 tab PO DAILY [facility] Last Admin: 06/10/18 09:50 Dose: 1 tab Xzjek-2-Cxcv Ethyl Esters (Lovaza) 1 gm PO DAILY [facility] Last Admin: 06/10/18 09:46 Dose: 1 gm Ondansetron HCl (Zofran Inj) 4 mg IVP Q6 PRN PRN Reason: Nausea/Vomiting Pantoprazole Sodium (Protonix Ec Tab) 40 mg PO DAILY [facility] Last Admin: 06/10/18 09:49 Dose: 40 mg Sennosides (Senokot Tab) 8.6 mg PO BID [facility] - Labs Labs: 06/10/18 05:05 06/10/18 05:05 PT 12.7 Seconds (9.8-13.1) 06/07/18 12:26 INR 1.1 06/07/18 12:26 APTT 32.0 Seconds (25.6-37.1) 06/07/18 12:26 Attending/Attestation - Attestation I have personally seen and examined this patient.: Yes I have fully participated in the care of the patient.: Yes I have reviewed all pertinent clinical information, including history, physical exam and plan: Yes Notes (Text): 1. Acute Hypoxemic respiratory failure secondary to Multifocal Pneumonia CT chest showed multifocal infiltrates LLL, RUL,RLL off Hi Flow - changed to 3 liters NC Duonebs Q4 RTC Continue Mucinex, IV Rocephin and Zithromax 2. Sepsis (present in admission) due to Multifocal PNA, bacterial cultures with no growth so far continue Rocephin and Zithromax IV x 1 wk 3.HTN controlled on norvasc 4. DM type II accuchecks, Insulin coverage , diabetic diet hold Actos
[2018-06-10] MEDS: Enoxaparin 40 mg Syringe SC SCH (09:46)
[2018-06-10] MEDS: Omega-3-Acid Ethyl Esters 1 GM Cap PO SCH (09:46)
[2018-06-10] MEDS: guaiFENesin 600 mg ER Tab PO SCH (09:47)
[2018-06-10] MEDS: Pantoprazole 40 mg EC Tab PO SCH (09:49)
[2018-06-10] MEDS: Azithromycin 500 MG in Sodium Chloride 0.9% 250 ML IVPB SCH (09:50)
[2018-06-10] MEDS: Multivitamin With Minerals Tab PO SCH (09:50)
--- NOTE | 2018-06-10 11:18 | CP.PCM.PN ---
Subjective - Date & Time of Evaluation Date of Evaluation: 06/10/18 Time of Evaluation: 11:16 - Subjective Subjective: Seen on rounds in telemetry. Seated in a bedside chair. Interim events and EMR entries reviewed. Still has a congested cough. Vital signs have been stable and she remains afebrile. Leukocytosis has resolved, mildly anemic, stable renal function. SpO2 96% at rest. Mycoplasma and Legionella both negative. No dependant edema or cyanosis. No calf tenderness. Neck is supple and trachea midline. Pharynx is pink and moist. No dullness on chest percussion. Coarse sonorous and sibilant rhonchi all lung rabago. Good air exchange bilaterally, no wheezes or bronchial breath sounds. Heart sounds are slightly distant, regular, no longer tachy. Continue present aerosol regimen. Switch Mucinex to DM. Okay by me to change antibiotic to PO now. From a pulmonary perspective she can be transferred off telemetry. Objective - Vital Signs/Intake and Output Vital Signs (last 24 hours): Temp Pulse Resp BP Pulse Ox 98.1 F 82 18 132/70 96 06/10/18 07:41 06/10/18 11:02 06/10/18 07:41 06/10/18 09:47 06/10/18 11:02 - Medications Medications: Current Medications Acetaminophen (Tylenol 325mg Tab) 650 mg PO Q6 PRN PRN Reason: Pain, Mild (1-3) Last Admin: 06/07/18 15:56 Dose: 650 mg Acetaminophen (Tylenol 325mg Tab) 650 mg PO Q6 PRN PRN Reason: Fever >100.4 F Albuterol/Ipratropium (Duoneb 3 Mg/0.5 Mg (3 Ml) Ud) 3 ml INH RQ4 PRN PRN Reason: Shortness of Breath Last Admin: 06/09/18 23:31 Dose: 3 ml Albuterol/Ipratropium (Duoneb 3 Mg/0.5 Mg (3 Ml) Ud) 3 ml INH RQID [facility] Last Admin: 06/10/18 08:01 Dose: 3 ml Amlodipine Besylate (Norvasc) 10 mg PO DAILY [facility] Last Admin: 06/10/18 09:47 Dose: 10 mg Aspirin (Ecotrin) 81 mg PO DAILY [facility] Last Admin: 06/10/18 09:46 Dose: 81 mg Atorvastatin Calcium (Lipitor) 20 mg PO HS [facility] Last Admin: 06/09/18 21:02 Dose: 20 mg Dextrose (Dextrose 50% Inj) 0 ml IV STAT PRN; Protocol PRN Reason: Hypoglycemia Protocol Dextrose (Glutose 15) 0 gm PO ONCE PRN; Protocol PRN Reason: Hypoglycemia Protocol Enoxaparin Sodium (Lovenox) 40 mg SC DAILY [facility]; Protocol Last Admin: 06/10/18 09:46 Dose: 40 mg Famotidine (Pepcid) 20 mg PO DAILY [facility] Last Admin: 06/10/18 09:49 Dose: 20 mg Gabapentin (Neurontin) 100 mg PO Q8 [facility] Last Admin: 06/10/18 09:47 Dose: 100 mg Glucagon (Glucagen Diagnostic Kit) 0 mg IM STAT PRN; Protocol PRN Reason: Hypoglycemia Protocol Guaifenesin (Mucinex La) 600 mg PO Q12 [facility] Last Admin: 06/10/18 09:47 Dose: 600 mg Ceftriaxone Sodium 1 gm/ (Sodium Chloride) 100 mls @ 100 mls/hr IVPB DAILY [facility]; Protocol Last Admin: 06/10/18 09:49 Dose: 100 mls/hr Azithromycin 500 mg/ Sodium (Chloride) 250 mls @ 250 mls/hr IVPB DAILY [facility]; Protocol Last Admin: 06/10/18 09:50 Dose: 250 mls/hr Insulin Human Regular (Humulin R) 0 units SC ACHS [facility]; Protocol Last Admin: 06/10/18 06:44 Dose: Not Given Multivitamins/Minerals (Therapeutic-M Tab) 1 tab PO DAILY [facility] Last Admin: 06/10/18 09:50 Dose: 1 tab [id number] Ethyl Esters (Lovaza) 1 gm PO DAILY [facility] Last Admin: 06/10/18 09:46 Dose: 1 gm Ondansetron HCl (Zofran Inj) 4 mg IVP Q6 PRN PRN Reason: Nausea/Vomiting Pantoprazole Sodium (Protonix Ec Tab) 40 mg PO DAILY [facility] Last Admin: 06/10/18 09:49 Dose: 40 mg - Labs Labs: 06/10/18 05:05 06/10/18 05:05 PT 12.7 Seconds (9.8-13.1) 06/07/18 12:26 INR 1.1 06/07/18 12:26 APTT 32.0 Seconds (25.6-37.1) 06/07/18 12:26 Assessment and Plan (1) Pneumonia, primary atypical Status: Acute (2) Sepsis Status: Acute
[2018-06-10] MEDS ORDERED: guaiFENesin-DM 600-30 mg ER Tab PO SCH (11:30)
[2018-06-10 15:33] VITALS: RESP 17; O2SAT 95
[2018-06-10 19:23] VITALS: BP 138/74; PULSE 90; TEMP 98.4
--- NOTE | 2018-06-11 06:54 | CP.PCM.DIS ---
<Jakemariela RussellMaureen - Last Filed: 06/11/18 08:53> Provider - Provider Date of Admission: 06/07/18 12:46 Attending physician: Stephan Garrett MD Consults: 06/07/18 18:37 Case Management Referral Routine Comment: Physician Instructions: Reason For Exam: Reason for Referral: Discharge Planning Social Work Referral Routine Comment: lives alone Physician Instructions: Reason For Exam: discharge planning 06/08/18 11:58 Pulmonology Consult Routine Comment: PNA Consulting Provider: Jay Daly Consulting Physician: Jay Daly Reason for Consult: PNA multifocal Time Spent in preparation of Discharge (in minutes): 33 Diagnosis - Discharge Diagnosis (1) CAP (community acquired pneumonia) Status: Acute (2) Hypoxemia Status: Acute Hospital Course - Lab Results Lab Results: Micro Results 06/07/18 12:20 Blood-Venous Blood Culture - Preliminary NO GROWTH AFTER 3 DAYS 06/07/18 12:49 Blood-Venous Blood Culture - Preliminary NO GROWTH AFTER 3 DAYS 06/08/18 17:08 Urine Random Urine Culture - Final No Growth (<1,000 CFU/ML) Most Recent Lab Values WBC 7.0 K/uL (4.8-10.8) D 06/10/18 05:05 RBC 3.71 Mil/uL (3.80-5.20) L 06/10/18 05:05 Hgb 11.2 g/dL (12.0-16.0) L 06/10/18 05:05 Hct 33.5 % (34.0-47.0) L 06/10/18 05:05 MCV 90.5 fl (81.0-99.0) 06/10/18 05:05 MCH 30.3 pg (27.0-31.0) 06/10/18 05:05 MCHC 33.5 g/dL (33.0-37.0) 06/10/18 05:05 RDW 15.4 % (11.5-14.5) H 06/10/18 05:05 Plt Count 191 K/uL (130-400) 06/10/18 05:05 MPV 8.8 fl (7.2-11.7) 06/08/18 04:20 Neut % (Auto) 90.5 % (50.0-75.0) H 06/08/18 04:20 Lymph % (Auto) 6.5 % (20.0-40.0) L 06/08/18 04:20 Giles % (Auto) 2.9 % (0.0-10.0) 06/08/18 04:20 Eos % (Auto) 0.0 % (0.0-4.0) 06/08/18 04:20 Baso % (Auto) 0.1 % (0.0-2.0) 06/08/18 04:20 Neut # (Auto) 16.9 K/uL (1.8-7.0) H 06/08/18 04:20 Lymph # (Auto) 1.2 K/uL (1.0-4.3) 06/08/18 04:20 Giles # (Auto) 0.5 K/uL (0.0-0.8) 06/08/18 04:20 Eos # (Auto) 0.0 K/uL (0.0-0.7) 06/08/18 04:20 Baso # (Auto) 0.0 K/uL (0.0-0.2) 06/08/18 04:20 Total Counted Cancelled 06/08/18 04:20 Neutrophils % (Manual) 86 % (42-75) H 06/07/18 12:26 Band Neutrophils % 4 % (0-2) H 06/07/18 12:26 Lymphocytes % (Manual) 3 % (20-50) L 06/07/18 12:26 Reactive Lymphs % Cancelled 06/08/18 04:20 Monocytes % (Manual) 7 % (0-10) 06/07/18 12:26 Eosinophils % (Manual) Cancelled 06/08/18 04:20 Basophils % (Manual) Cancelled 06/08/18 04:20 Metamyelocytes % Cancelled 06/08/18 04:20 Myelocytes % Cancelled 06/08/18 04:20 Promyelocytes % Cancelled 06/08/18 04:20 Blast Cells % Cancelled 06/08/18 04:20 Plasma Cell % (Manual) Cancelled 06/08/18 04:20 Nucleated RBC % Cancelled 06/08/18 04:20 Hypersegmented Polys Cancelled 06/08/18 04:20 Smudge Cells Cancelled 06/08/18 04:20 Toxic Granulation Cancelled 06/08/18 04:20 Dohle Bodies Cancelled 06/08/18 04:20 Tisha Rods Cancelled 06/08/18 04:20 Platelet Estimate Normal (NORMAL) 06/07/18 12:26 Plt Clumps, EDTA Cancelled 06/08/18 04:20 Large Platelets Cancelled 06/08/18 04:20 Giant Platelets Cancelled 06/08/18 04:20 RBC Morphology Cancelled 06/08/18 04:20 Polychromasia Cancelled 06/08/18 04:20 Hypochromasia (manual) Cancelled 06/08/18 04:20 Poikilocytosis (manual Cancelled 06/08/18 04:20 Basophilic Stippling Cancelled 06/08/18 04:20 Anisocytosis (manual) Slight 06/07/18 12:26 Microcytosis (manual) Cancelled 06/08/18 04:20 Macrocytosis (manual) Cancelled 06/08/18 04:20 Spherocytes Cancelled 06/08/18 04:20 Sickle Cells Cancelled 06/08/18 04:20 Target Cells Cancelled 06/08/18 04:20 Tear Drop Cells Cancelled 06/08/18 04:20 Ovalocytes Cancelled 06/08/18 04:20 Stomatocytes Cancelled 06/08/18 04:20 Helmet Cells Cancelled 06/08/18 04:20 Mondragon-Stevenson Bodies Cancelled 06/08/18 04:20 [place] Cells Cancelled 06/08/18 04:20 Acanthocytes (Spur) Cancelled 06/08/18 04:20 Rouleaux Cancelled 06/08/18 04:20 Schistocytes Cancelled 06/08/18 04:20 PT 12.7 Seconds (9.8-13.1) 06/07/18 12:26 INR 1.1 06/07/18 12:26 APTT 32.0 Seconds (25.6-37.1) 06/07/18 12:26 pCO2 37 mm/Hg (35-45) 06/07/18 16:24 pO2 57 mm/Hg (80-100) L 06/07/18 16:24 HCO3 25.6 mmol/L (21-28) 06/07/18 16:24 ABG pH 7.44 (7.35-7.45) 06/07/18 16:24 ABG Total CO2 26.2 mmol/L (22-28) 06/07/18 16:24 ABG O2 Saturation 96.1 % (95-98) 06/07/18 16:24 ABG O2 Content 16.4 ML/dL (15-23) 06/07/18 16:24 ABG Base Excess 1.1 mmol/L (-2.0-3.0) 06/07/18 16:24 ABG Hemoglobin 12.9 g/dL (11.7-17.4) 06/07/18 16:24 ABG Carboxyhemoglobin 3.0 % (0.5-1.5) H 06/07/18 16:24 POC ABG HHb (Measured) 3.7 % (0.0-5.0) 06/07/18 16:24 ABG Methemoglobin 2.7 % (0.0-3.0) 06/07/18 16:24 ABG O2 Capacity 17.1 mL/dL (16-24) 06/07/18 16:24 Mike Test Yes 06/07/18 16:24 VBG pH 7.37 (7.32-7.43) 06/07/18 12:18 VBG pCO2 48 mmHg (40-60) 06/07/18 12:18 VBG HCO3 24.9 mmol/L 06/07/18 12:18 VBG Total CO2 29.2 mmol/L (22-28) H 06/07/18 12:18 VBG O2 Sat (Calc) 58.4 % (40-65) 06/07/18 12:18 VBG Base Excess 1.6 mmol/L (0.0-2.0) 06/07/18 12:18 VBG Potassium 3.8 mmol/L (3.6-5.2) 06/07/18 12:18 A-a O2 Difference 125.0 mm/Hg 06/07/18 16:24 Hgb O2 Saturation 90.6 % (95.0-98.0) L 06/07/18 16:24 Sodium 133.0 mmol/L (132-148) 06/07/18 12:18 Chloride 95.0 mmol/L (98-107) L 06/07/18 12:18 Glucose 174 mg/dL (65-105) H 06/07/18 12:18 Lactate 2.0 mmol/L (0.7-2.1) 06/07/18 12:18 Vent Mode Nasa cannula 06/07/18 16:24 FiO2 32.0 % 06/07/18 16:24 Sodium 138 mmol/l (132-148) 06/10/18 05:05 Potassium 4.1 MMOL/L (3.6-5.0) 06/10/18 05:05 Chloride 101 mmol/L (98-107) 06/10/18 05:05 Carbon Dioxide 30 mmol/L (22-30) 06/10/18 05:05 Anion Gap 11 (10-20) 06/10/18 05:05 BUN 18 mg/dl (7-17) H 06/10/18 05:05 Creatinine 0.6 mg/dl (0.7-1.2) L 06/10/18 05:05 Est GFR ( Amer) > 60 06/10/18 05:05 Est GFR (Non-Af Amer) > 60 06/10/18 05:05 POC Glucose (mg/dL) 98 mg/dL (65-110) 06/10/18 16:05 Random Glucose 106 mg/dL (65-105) H 06/10/18 05:05 Hemoglobin A1c 6.3 % (4.2-6.5) 06/08/18 04:20 Calcium 8.5 mg/dL (8.4-10.2) 06/10/18 05:05 Total Bilirubin 0.3 mg/dl (0.2-1.3) 06/08/18 04:20 AST 36 U/L (14-36) 06/08/18 04:20 ALT 21 U/L (9-52) 06/08/18 04:20 Alkaline Phosphatase 47 U/L (38-126) 06/08/18 04:20 Troponin I 0.0270 ng/mL (0.00-0.120) 06/08/18 06:45 NT-Pro-B Natriuret Pep 764 pg/ml (0-900) 06/07/18 12:26 Total Protein 6.8 G/DL (6.3-8.2) 06/08/18 04:20 Albumin 3.9 g/dL (3.5-5.0) 06/08/18 04:20 Globulin 2.8 gm/dL (2.2-3.9) 06/08/18 04:20 Albumin/Globulin Ratio 1.4 (1.0-2.1) 06/08/18 04:20 Triglycerides 52 mg/DL (0-149) 06/08/18 04:20 Cholesterol 127 mg/dL (0-199) 06/08/18 04:20 LDL Cholesterol Direct 54 mg/dL (0-129) 06/08/18 04:20 HDL Cholesterol 48 MG/DL (30-70) 06/08/18 04:20 Free T4 1.39 ng/dL (0.78-2.19) 06/10/18 05:05 Free T3 pg/mL 2.68 pg/mL (2.77-5.27) L 06/10/18 05:05 TSH 3rd Generation 2.00 mIU/ML (0.46-4.68) 06/10/18 05:05 Venous Blood Potassium 3.8 mmol/L (3.6-5.2) 06/07/18 12:18 Urine Color Yellow (YELLOW) 06/07/18 16:51 Urine Clarity Clear (Clear) 06/07/18 16:51 Urine pH 6.0 (5.0-8.0) 06/07/18 16:51 Ur Specific [place] 1.045 (1.003-1.030) H 06/07/18 16:51 Urine Protein 100 mg/dL (NEGATIVE) 06/07/18 16:51 Urine Glucose (UA) Neg mg/dL (NEGATIVE) 06/07/18 16:51 Urine Ketones Negative mg/dL (NEGATIVE) 06/07/18 16:51 Urine Blood Small (NEGATIVE) 06/07/18 16:51 Urine Nitrate Negative (NEGATIVE) 06/07/18 16:51 Urine Bilirubin Negative (NEGATIVE) 06/07/18 16:51 Urine Urobilinogen 0.2-1.0 mg/dL (0.2-1.0) 06/07/18 16:51 Ur Leukocyte Esterase Neg Alen/uL (Negative) 06/07/18 16:51 Urine RBC (Auto) 6 /hpf (0-3) H 06/07/18 16:51 Urine Microscopic WBC 1 /hpf (0-5) 06/07/18 16:51 Ur Squamous Epith Cells < 1 /hpf (0-5) 06/07/18 16:51 Influenza Typ A,B (EIA) Negative for flu a/b (NEGATIVE) 06/07/18 12:26 Ur L.pneumophila Ag Negative (NEGATIVE) 06/08/18 12:46 Mycoplasma pneumon IgM Negative (NEGATIVE) 06/08/18 14:40 - Hospital Course Hospital Course: 87 Y/O female with PMH CAD , HTN, DM , Dyslipidemia presented to ED with dyspnea,cough chest discomfort for 4-5 days, yellowish sputum production for 4 days associated with fever at home. In ED she was found to be in respiratory distress with O2 Sat in low 90 % , tachycardic WBC elevated 14 K ,bandemia 4, with diffuse rhonchi and wheezing bilaterally ,CXR showed RML infiltrate and questionable LLL infiltrate ABG on 2 Lo2 via nC PO2 57 ph 7.34 PCO2 37, CT of chest confirmed multifocal PNA. Patient was admitted to [facility] with diagnosis of Acute hypoxemic respiratory failure, Sepsis and Community acquired Pneumonia mutifocal. During Hospital course patient was put initially high flow vent NC and day 2 advanced to OX 3L NC which she has tolearted well, and started on 06/07 antbx IV with Rocephin and Azithromcin and recived Solu-medrol 125 x 1 dose and pulmonology was consulted by Dr Daly. Patient remained afebrile after admission, Leukocytosis resolved on day 2. Patient on day of Dc 06/10/18 has continued clinically improving, evaluated by pulmo, is hemodinamically stable and is found clinically stable to be DC to TCU to continue IV antibx. Due to debility and deconditioning secondary to PNA and hospitalization, she will also benefit from continuing PT evaluation and therapy in TCU. Discharge Exam - Head Exam Head Exam: ATRAUMATIC, NORMOCEPHALIC - Additional Findings Additional findings: - Additional Findings Additional findings: - Head Exam Head Exam: ATRAUMATIC, NORMOCEPHALIC - Eye Exam Eye Exam: EOMI - ENT Exam ENT Exam: Mucous Membranes Moist - Neck Exam Neck Exam: Full ROM - Respiratory Exam Respiratory Exam: Rales, Wheezes Additional comments: Patient sounds congested, diffuse rales heard bilateral, some rhonchi - Cardiovascular Exam Cardiovascular Exam: REGULAR RHYTHM, +S1, +S2 - GI/Abdominal Exam GI & Abdominal Exam: Soft. absent: Tenderness - Extremities Exam Extremities Exam: absent: Pedal Edema - Neurological Exam Neurological Exam: Alert, Awake, Oriented x3 - Psychiatric Exam Psychiatric exam: Normal Affect - Skin Skin Exam: Normal Color, Warm Discharge Plan - Discharge Medications Prescriptions: Azithromycin 500mg/250ML NS [Zithromax 500mg in NS Addvantage] 500 mg IV Q24H 5 Days bag cefTRIAXone 1 gm [Rocephin 1 gram IVPB] 1 gm IVPB DAILY 5 Days bag - Follow Up Plan Condition: GUARDED Disposition: REHAB FACILITY/REHAB UNIT Instructions: Pneumonia, Adult (DC), Coronary Heart Disease (DC) Additional Instructions: Patient stable for transfer to TCU. Referrals: Jay Daly MD [Staff Provider] - Bobby Kilgore MD [Staff Provider] - <Charlette Barrett - Last Filed: 06/11/18 13:44> Provider - Provider Date of Admission: 06/07/18 12:46 Attending physician: Stephan Garrett MD Consults: 06/07/18 18:37 Case Management Referral Routine Comment: Physician Instructions: Reason For Exam: Reason for Referral: Discharge Planning Social Work Referral Routine Comment: lives alone Physician Instructions: Reason For Exam: discharge planning 06/08/18 11:58 Pulmonology Consult Routine Comment: PNA Consulting Provider: Jay Daly Consulting Physician: Jay Daly Reason for Consult: PNA multifocal Hospital Course - Lab Results Lab Results: Micro Results 06/07/18 12:20 Blood-Venous Blood Culture - Preliminary NO GROWTH AFTER 3 DAYS 06/07/18 12:49 Blood-Venous Blood Culture - Preliminary NO GROWTH AFTER 3 DAYS 06/08/18 17:08 Urine Random Urine Culture - Final No Growth (<1,000 CFU/ML) Most Recent Lab Values WBC 7.0 K/uL (4.8-10.8) D 06/10/18 05:05 RBC 3.71 Mil/uL (3.80-5.20) L 06/10/18 05:05 Hgb 11.2 g/dL (12.0-16.0) L 06/10/18 05:05 Hct 33.5 % (34.0-47.0) L 06/10/18 05:05 MCV 90.5 fl (81.0-99.0) 06/10/18 05:05 MCH 30.3 pg (27.0-31.0) 06/10/18 05:05 MCHC 33.5 g/dL (33.0-37.0) 06/10/18 05:05 RDW 15.4 % (11.5-14.5) H 06/10/18 05:05 Plt Count 191 K/uL (130-400) 06/10/18 05:05 MPV 8.8 fl (7.2-11.7) 06/08/18 04:20 Neut % (Auto) 90.5 % (50.0-75.0) H 06/08/18 04:20 Lymph % (Auto) 6.5 % (20.0-40.0) L 06/08/18 04:20 Giles % (Auto) 2.9 % (0.0-10.0) 06/08/18 04:20 Eos % (Auto) 0.0 % (0.0-4.0) 06/08/18 04:20 Baso % (Auto) 0.1 % (0.0-2.0) 06/08/18 04:20 Neut # (Auto) 16.9 K/uL (1.8-7.0) H 06/08/18 04:20 Lymph # (Auto) 1.2 K/uL (1.0-4.3) 06/08/18 04:20 Giles # (Auto) 0.5 K/uL (0.0-0.8) 06/08/18 04:20 Eos # (Auto) 0.0 K/uL (0.0-0.7) 06/08/18 04:20 Baso # (Auto) 0.0 K/uL (0.0-0.2) 06/08/18 04:20 Total Counted Cancelled 06/08/18 04:20 Neutrophils % (Manual) 86 % (42-75) H 06/07/18 12:26 Band Neutrophils % 4 % (0-2) H 06/07/18 12:26 Lymphocytes % (Manual) 3 % (20-50) L 06/07/18 12:26 Reactive Lymphs % Cancelled 06/08/18 04:20 Monocytes % (Manual) 7 % (0-10) 06/07/18 12:26 Eosinophils % (Manual) Cancelled 06/08/18 04:20 Basophils % (Manual) Cancelled 06/08/18 04:20 Metamyelocytes % Cancelled 06/08/18 04:20 Myelocytes % Cancelled 06/08/18 04:20 Promyelocytes % Cancelled 06/08/18 04:20 Blast Cells % Cancelled 06/08/18 04:20 Plasma Cell % (Manual) Cancelled 06/08/18 04:20 Nucleated RBC % Cancelled 06/08/18 04:20 Hypersegmented Polys Cancelled 06/08/18 04:20 Smudge Cells Cancelled 06/08/18 04:20 Toxic Granulation Cancelled 06/08/18 04:20 Dohle Bodies Cancelled 06/08/18 04:20 Tisha Rods Cancelled 06/08/18 04:20 Platelet Estimate Normal (NORMAL) 06/07/18 12:26 Plt Clumps, EDTA Cancelled 06/08/18 04:20 Large Platelets Cancelled 06/08/18 04:20 Giant Platelets Cancelled 06/08/18 04:20 RBC Morphology Cancelled 06/08/18 04:20 Polychromasia Cancelled 06/08/18 04:20 Hypochromasia (manual) Cancelled 06/08/18 04:20 Poikilocytosis (manual Cancelled 06/08/18 04:20 Basophilic Stippling Cancelled 06/08/18 04:20 Anisocytosis (manual) Slight 06/07/18 12:26 Microcytosis (manual) Cancelled 06/08/18 04:20 Macrocytosis (manual) Cancelled 06/08/18 04:20 Spherocytes Cancelled 06/08/18 04:20 Sickle Cells Cancelled 06/08/18 04:20 Target Cells Cancelled 06/08/18 04:20 Tear Drop Cells Cancelled 06/08/18 04:20 Ovalocytes Cancelled 06/08/18 04:20 Stomatocytes Cancelled 06/08/18 04:20 Helmet Cells Cancelled 06/08/18 04:20 Mondragon-Stevenson Bodies Cancelled 06/08/18 04:20 [place] Cells Cancelled 06/08/18 04:20 Acanthocytes (Spur) Cancelled 06/08/18 04:20 Rouleaux Cancelled 06/08/18 04:20 Schistocytes Cancelled 06/08/18 04:20 PT 12.7 Seconds (9.8-13.1) 06/07/18 12:26 INR 1.1 06/07/18 12:26 APTT 32.0 Seconds (25.6-37.1) 06/07/18 12:26 pCO2 37 mm/Hg (35-45) 06/07/18 16:24 pO2 57 mm/Hg (80-100) L 06/07/18 16:24 HCO3 25.6 mmol/L (21-28) 06/07/18 16:24 ABG pH 7.44 (7.35-7.45) 06/07/18 16:24 ABG Total CO2 26.2 mmol/L (22-28) 06/07/18 16:24 ABG O2 Saturation 96.1 % (95-98) 06/07/18 16:24 ABG O2 Content 16.4 ML/dL (15-23) 06/07/18 16:24 ABG Base Excess 1.1 mmol/L (-2.0-3.0) 06/07/18 16:24 ABG Hemoglobin 12.9 g/dL (11.7-17.4) 06/07/18 16:24 ABG Carboxyhemoglobin 3.0 % (0.5-1.5) H 06/07/18 16:24 POC ABG HHb (Measured) 3.7 % (0.0-5.0) 06/07/18 16:24 ABG Methemoglobin 2.7 % (0.0-3.0) 06/07/18 16:24 ABG O2 Capacity 17.1 mL/dL (16-24) 06/07/18 16:24 Mike Test Yes 06/07/18 16:24 VBG pH 7.37 (7.32-7.43) 06/07/18 12:18 VBG pCO2 48 mmHg (40-60) 06/07/18 12:18 VBG HCO3 24.9 mmol/L 06/07/18 12:18 VBG Total CO2 29.2 mmol/L (22-28) H 06/07/18 12:18 VBG O2 Sat (Calc) 58.4 % (40-65) 06/07/18 12:18 VBG Base Excess 1.6 mmol/L (0.0-2.0) 06/07/18 12:18 VBG Potassium 3.8 mmol/L (3.6-5.2) 06/07/18 12:18 A-a O2 Difference 125.0 mm/Hg 06/07/18 16:24 Hgb O2 Saturation 90.6 % (95.0-98.0) L 06/07/18 16:24 Sodium 133.0 mmol/L (132-148) 06/07/18 12:18 Chloride 95.0 mmol/L (98-107) L 06/07/18 12:18 Glucose 174 mg/dL (65-105) H 06/07/18 12:18 Lactate 2.0 mmol/L (0.7-2.1) 06/07/18 12:18 Vent Mode Nasa cannula 06/07/18 16:24 FiO2 32.0 % 06/07/18 16:24 Sodium 138 mmol/l (132-148) 06/10/18 05:05 Potassium 4.1 MMOL/L (3.6-5.0) 06/10/18 05:05 Chloride 101 mmol/L (98-107) 06/10/18 05:05 Carbon Dioxide 30 mmol/L (22-30) 06/10/18 05:05 Anion Gap 11 (10-20) 06/10/18 05:05 BUN 18 mg/dl (7-17) H 06/10/18 05:05 Creatinine 0.6 mg/dl (0.7-1.2) L 06/10/18 05:05 Est GFR ( Amer) > 60 06/10/18 05:05 Est GFR (Non-Af Amer) > 60 06/10/18 05:05 POC Glucose (mg/dL) 98 mg/dL (65-110) 06/10/18 16:05 Random Glucose 106 mg/dL (65-105) H 06/10/18 05:05 Hemoglobin A1c 6.3 % (4.2-6.5) 06/08/18 04:20 Calcium 8.5 mg/dL (8.4-10.2) 06/10/18 05:05 Total Bilirubin 0.3 mg/dl (0.2-1.3) 06/08/18 04:20 AST 36 U/L (14-36) 06/08/18 04:20 ALT 21 U/L (9-52) 06/08/18 04:20 Alkaline Phosphatase 47 U/L (38-126) 06/08/18 04:20 Troponin I 0.0270 ng/mL (0.00-0.120) 06/08/18 06:45 NT-Pro-B Natriuret Pep 764 pg/ml (0-900) 06/07/18 12:26 Total Protein 6.8 G/DL (6.3-8.2) 06/08/18 04:20 Albumin 3.9 g/dL (3.5-5.0) 06/08/18 04:20 Globulin 2.8 gm/dL (2.2-3.9) 06/08/18 04:20 Albumin/Globulin Ratio 1.4 (1.0-2.1) 06/08/18 04:20 Triglycerides 52 mg/DL (0-149) 06/08/18 04:20 Cholesterol 127 mg/dL (0-199) 06/08/18 04:20 LDL Cholesterol Direct 54 mg/dL (0-129) 06/08/18 04:20 HDL Cholesterol 48 MG/DL (30-70) 06/08/18 04:20 Free T4 1.39 ng/dL (0.78-2.19) 06/10/18 05:05 Free T3 pg/mL 2.68 pg/mL (2.77-5.27) L 06/10/18 05:05 TSH 3rd Generation 2.00 mIU/ML (0.46-4.68) 06/10/18 05:05 Venous Blood Potassium 3.8 mmol/L (3.6-5.2) 06/07/18 12:18 Urine Color Yellow (YELLOW) 06/07/18 16:51 Urine Clarity Clear (Clear) 06/07/18 16:51 Urine pH 6.0 (5.0-8.0) 06/07/18 16:51 Ur Specific [place] 1.045 (1.003-1.030) H 06/07/18 16:51 Urine Protein 100 mg/dL (NEGATIVE) 06/07/18 16:51 Urine Glucose (UA) Neg mg/dL (NEGATIVE) 06/07/18 16:51 Urine Ketones Negative mg/dL (NEGATIVE) 06/07/18 16:51 Urine Blood Small (NEGATIVE) 06/07/18 16:51 Urine Nitrate Negative (NEGATIVE) 06/07/18 16:51 Urine Bilirubin Negative (NEGATIVE) 06/07/18 16:51 Urine Urobilinogen 0.2-1.0 mg/dL (0.2-1.0) 06/07/18 16:51 Ur Leukocyte Esterase Neg Alen/uL (Negative) 06/07/18 16:51 Urine RBC (Auto) 6 /hpf (0-3) H 06/07/18 16:51 Urine Microscopic WBC 1 /hpf (0-5) 06/07/18 16:51 Ur Squamous Epith Cells < 1 /hpf (0-5) 06/07/18 16:51 Influenza Typ A,B (EIA) Negative for flu a/b (NEGATIVE) 06/07/18 12:26 Ur L.pneumophila Ag Negative (NEGATIVE) 06/08/18 12:46 Mycoplasma pneumon IgM Negative (NEGATIVE) 06/08/18 14:40 Attending/Attestation - Attestation I have personally seen and examined this patient.: Yes I have fully participated in the care of the patient.: Yes I have reviewed all pertinent clinical information, including history, physical exam and plan: Yes Notes (Text): 1. Acute Hypoxemic respiratory failure secondary to Multifocal Pneumonia CT chest showed multifocal infiltrates LLL, RUL,RLL initially on Hi Flow - changed to 3 liters NC, saturating 96-97% on 3 liters Duonebs Q4 RTC Received IV Rocephin and Zithromax clinically improved, will d/c pt to TCU , cont IV abx for 1 more week 2. Sepsis (present on admission) due to Multifocal PNA, bacterial cultures with no growth so far continue Rocephin and Zithromax IV x 1 more wk 3.HTN controlled on norvasc 4. DM type II accuchecks, Insulin coverage , diabetic diet hold Actos Glucose controlled off meds 5. Physical Deconditioning Physical therapy consulted- rec TCU for further Rehab 06/11/18 13:43
== END 2018-06-10 21:00 | DRG 871 ==
LOC: H.ER 11:49 → H.ERHOLD 12:46 → H.TEL 16:55
PROVIDERS: ADMIT Hospitalist; ATTEND Hospitalist
DX: A41.9 Sepsis, unspecified organism (principal); J96.01 Acute respiratory failure with hypoxia; J18.9 Pneumonia, unspecified organism; I25.10 Atherosclerotic heart disease of native coronary artery without angina pectoris; E11.9 Type 2 diabetes mellitus without complications; D64.9 Anemia, unspecified; I10 Essential (primary) hypertension; E78.00 Pure hypercholesterolemia, unspecified; E78.5 Hyperlipidemia, unspecified; Z79.82 Long term (current) use of aspirin; Z79.84 Long term (current) use of oral hypoglycemic drugs

== ENCOUNTER 2018-06-10 15:11 | Inpatient (IN) | payer MEDICARE ==
[2018-06-10 22:29] VITALS: BMI 31.0
[2018-06-10 22:50] VITALS: RESP 20
[2018-06-11] MEDS: guaiFENesin-DM 600-30 mg ER Tab PO SCH ×3 (00:31→21:22)
[2018-06-11] MEDS ORDERED: Albuterol-Ipratrop 3 mg / 0.5 (3 ml) UD INH STA (04:59)
--- NOTE | 2018-06-11 06:48 | CP.PCM.HP ---
Past Patient History - Infectious Disease Hx of Infectious Diseases: None - Tetanus Immunizations Tetanus Immunization: Unknown - Past Medical History & Family History Past Medical History?: Yes - Past Social History Smoking Status: Never Smoked - CARDIAC Hx Hypercholesterolemia: Yes Hx Hypertension: Yes - PULMONARY Hx Pneumonia: Yes - NEUROLOGICAL Hx Neurological Disorder: No - HEENT Hx HEENT Problems: Yes Other/Comment: glasses for reading. hard of hearing - RENAL Hx Chronic Kidney Disease: No - ENDOCRINE/METABOLIC Hx Endocrine Disorders: Yes Hx Diabetes Mellitus Type 2: Yes - HEMATOLOGICAL/ONCOLOGICAL Hx Blood Disorders: No - INTEGUMENTARY Hx Dermatological Problems: No - MUSCULOSKELETAL/RHEUMATOLOGICAL Hx Falls: Yes Hx Fractures: Yes (l shoulder fx-no surgery) Hx Spinal Stenosis: Yes - GASTROINTESTINAL Hx Gastrointestinal Disorders: No - GENITOURINARY/GYNECOLOGICAL Hx Genitourinary Disorders: No - PSYCHIATRIC Hx Psychophysiologic Disorder: No Hx Substance Use: No - SURGICAL HISTORY Hx Surgeries: No Other/Comment: I&D of abdominal abscess, 2012. multiple epidurals for spinal stenosis - ANESTHESIA Hx Anesthesia: Yes Hx Anesthesia Reactions: No Meds Allergies/Adverse Reactions: Allergies Allergy/AdvReac Type Severity Reaction Status Date / Time No Known Allergies Allergy Verified 06/07/18 11:52 Results - Vital Signs Recent Vital Signs: Last Vital Signs Temp 98.2 F 06/10/18 22:49 Pulse 84 06/11/18 05:13 Resp 20 06/10/18 22:49 BP 162/77 H 06/10/18 22:49 Pulse Ox 94 L 06/10/18 22:49
[2018-06-11] MEDS: Albuterol-Ipratrop 3 mg / 0.5 (3 ml) UD INH SCH ×3 (07:18→19:02)
[2018-06-11] MEDS ORDERED: cefTRIAXone IV 1 gm in Dextros 50 ML BAG IVPB SCH (09:00)
[2018-06-11] MEDS ORDERED: Azithromycin 500 MG in Sodium Chloride 0.9% 250 ML IVPB SCH (09:00)
--- NOTE | 2018-06-11 09:19 | CP.PCM.HP ---
<Maureen Simms - Last Filed: 06/11/18 11:25> History of Present Illness - History of Present Illness History of Present Illness: The patient is an 87 Y/O pleasant female with PMH CAD, HTN, DM and Dyslipidemia. History is obtained form patient and reviewed of chart. Patient presented to ED on 06/07 with c/o dyspnea, cough chest discomfort for 4-5 days, yellowish sputum production for 4 days associated with fever at home. In ED she was found to be in respiratory distress with O2 Sat in low 90 % , tachycardic WBC elevated 14 K ,bandemia 4, with diffuse rhonchi and wheezing bilaterally ,CXR showed RML infiltrate and questionable LLL infiltrate ABG on 2 Lo2 via nC PO2 57 ph 7.34 PCO2 37, CT of chest confirmed multifocal PNA. Patient was admitted to [facility] with diagnosis of Acute hypoxemic respiratory failure, Sepsis and Community acquired Pneumonia mutifocal on 06/07/18. During Hospital course patient was put initiallly high flow vent NC and started on antbx IV with Rocephin and Azithromcin. Patient remained afebrile after admission, Leukocytosis resolved on day 2. Patient on day of Dc 06/10/18 continued clinically improving, and was clinically stable to be DC to TCU to continue IV antibx. Due to debility and deconditioning secondary to PNA and hospitalization, she will benefit from continuing PT evaluation and therapy in TCU at this time. During today encounter at bedside in TCU patient still c/o some cough, and some weakness, denies SOB, chest pain, N/V, fever or other acute medical compalint at present. PMD: Dr. Bobby Kilgore Code status: Full PMHX: CAD (AL 11 yrs ago), HTN, DM, HLD Meds: Norvasc 10mg QD, ASA 81mg QD, Pepcid 20mg QD, Neurontin 100mg Q8h, Pi oglitazone 15mg QD, Simvastatin 40mg PO HS, [place] 3 fish oil, Multivitamin Allergies: NKDA Fhx: Mom pnemonia at age 38 Surg hx: 2012-Stomach cellulitis abscess Social Hx: Denies tobacco or hx of tobacco, alcohol or drug use. Present on Admission - Present on Admission Any Indicators Present on Admission: No History of DVT/PE: No History of Uncontrolled Diabetes: No Urinary Catheter: No Decubitus Ulcer Present: No Past Patient History - Infectious Disease Hx of Infectious Diseases: None - Tetanus Immunizations Tetanus Immunization: Unknown - Past Medical History & Family History Past Medical History?: Yes - Past Social History Smoking Status: Never Smoked - CARDIAC Hx Hypercholesterolemia: Yes Hx Hypertension: Yes - PULMONARY Hx Pneumonia: Yes - NEUROLOGICAL Hx Neurological Disorder: No - HEENT Hx HEENT Problems: Yes Other/Comment: glasses for reading. hard of hearing - RENAL Hx Chronic Kidney Disease: No - ENDOCRINE/METABOLIC Hx Endocrine Disorders: Yes Hx Diabetes Mellitus Type 2: Yes - HEMATOLOGICAL/ONCOLOGICAL Hx Blood Disorders: No - INTEGUMENTARY Hx Dermatological Problems: No - MUSCULOSKELETAL/RHEUMATOLOGICAL Hx Falls: Yes Hx Fractures: Yes (l shoulder fx-no surgery) Hx Spinal Stenosis: Yes - GASTROINTESTINAL Hx Gastrointestinal Disorders: No - GENITOURINARY/GYNECOLOGICAL Hx Genitourinary Disorders: No - PSYCHIATRIC Hx Psychophysiologic Disorder: No Hx Substance Use: No - SURGICAL HISTORY Hx Surgeries: No Other/Comment: I&D of abdominal abscess, 2012. multiple epidurals for spinal stenosis - ANESTHESIA Hx Anesthesia: Yes Hx Anesthesia Reactions: No Meds Allergies/Adverse Reactions: Allergies Allergy/AdvReac Type Severity Reaction Status Date / Time No Known Allergies Allergy Verified 06/07/18 11:52 Physical Exam - Additional Findings Additional findings: - Additional Findings Additional findings: - Head Exam Head Exam: ATRAUMATIC, NORMOCEPHALIC - Eye Exam Eye Exam: EOMI - ENT Exam ENT Exam: Mucous Membranes Moist - Neck Exam Neck Exam: Full ROM - Respiratory Exam Respiratory Exam: Rales, Wheezes Additional comments: Patient mild congested, with diffuse rales heard bilateral, some rhonchi - Cardiovascular Exam Cardiovascular Exam: REGULAR RHYTHM, +S1, +S2 - GI/Abdominal Exam GI & Abdominal Exam: Soft. absent: Tenderness - Extremities Exam Extremities Exam: absent: Pedal Edema - Neurological Exam Neurological Exam: Alert, Awake, Oriented x3 - Psychiatric Exam Psychiatric exam: Normal Affect - Skin Skin Exam: Normal Color, Warm Results - Vital Signs Recent Vital Signs: Last Vital Signs Temp 98.2 F 06/10/18 22:49 Pulse 84 06/11/18 05:13 Resp 20 06/10/18 22:49 BP 162/77 H 06/10/18 22:49 Pulse Ox 94 L 06/10/18 22:49 - Labs Labs: Laboratory Results - last 24 hr 06/11/18 07:16 POC Glucose (mg/dL) 126 H Assessment & Plan - Assessment and Plan (Free Text) Assessment: Pt is an 87 yo F with a pmhx of CAD (AL 11 yrs ago as per chart), HTN, DM and HLD. Patient was admitted to telemetry for Acute hypoxemic respiratory failure, Sepsis, Community acquired Pneumonia on 06/07/18 to 06/10/18. Patient admitte to TCU for IV antibiotic therapy and for debility/deconditioning to receive further PT Plan: #.CAP -C/W O2 2 L NC -Continue Rocephin and Zithromax IV, total 1 week (today day 5 ) -F/U Serology Strep PNA -Influenza a/b negative - Mycoplasma, legionella serology negative -f/u CBC #Deconditioning/debilty secondary to CAP, Hospitalization -C/w PT/OT #. Acute Hypoxemic respiratory failure Improving patient was on high flow 10 L FIO2 50 % , now on O2 2 L NC Duonebs Q4 RTC 1 dose given Solumedrol 125 mg IV on last admission CT chest with IV contrast revealed multifocal PNA, LEft base infiltrate and RLL infiltrate (see report) Pulmonary consult Dr Daly, recommendtion appreciated #. Sepsis (present in admission) -resolved -Leukocytosis resolved WBC 7.0 06/10/18 - secondary to PNA -Clinically improving, afebrile, VS -HR 90s -F/u BC, UC both no growth afte 3 days -Sputum C pending, unable to collect due to poor suptum production -C/W Rocephin and Zithromax IV (today day 5), Patient will need 1 week of IV antibiotic -F/U CBC, BMP in AM #.HTN C/w home meds #. DM accuchecks, Insulin coverage , diabetic diet chronic, POC 165 sliding scale coverage accuchecks hypoglycemic protocol Hga1c 6.3 c/w pioglitazone #HLD chronic ordered lipid panel c/w home meds #Diet Diabetic/heart healthy #DVT PPX SCD now Lovenox 40mg SC QD <Charlette Barrett - Last Filed: 06/11/18 13:50> Results - Vital Signs Recent Vital Signs: Last Vital Signs Temp 98.0 F 06/11/18 09:56 Pulse 95 H 06/11/18 09:56 Resp 20 06/11/18 09:56 BP 148/71 06/11/18 09:56 Pulse Ox 94 L 06/11/18 09:56 - Labs Labs: Laboratory Results - last 24 hr 06/11/18 07:16 POC Glucose (mg/dL) 126 H Attending/Attestation - Attestation I have personally seen and examined this patient.: Yes I have fully participated in the care of the patient.: Yes I have reviewed all pertinent clinical information: Yes Notes (Text): 1. Acute Hypoxemic respiratory failure secondary to Multifocal Pneumonia, resolved Oxygen 2-3 liters NC - saturating 97% Duonebs Q4 RTC Pt still has wheezing and rhonchi 2. Sepsis (present in admission) due to Multifocal PNA, bacterial, improved cultures with no growth so far continue Rocephin and Zithromax IV x 6 more days 3.HTN controlled on norvasc 4. DM type II accuchecks, Insulin coverage , diabetic diet hold Actos Glucose controlled off meds 5. Physical Deconditioning - Physical therapy
[2018-06-11] MEDS: Multivitamin With Minerals Tab PO SCH (09:38)
[2018-06-11] MEDS: Omega-3-Acid Ethyl Esters 1 GM Cap PO SCH (09:38)
[2018-06-11] MEDS: Enoxaparin 40 mg Syringe SC SCH (09:40)
--- NOTE | 2018-06-11 09:46 | RAD ---
Date of service: 06/11/2018 HISTORY: pneumonia COMPARISON: Comparison made with prior study 06/07/2018. Comparison also made with CTA of the chest dated 06/07/2018 TECHNIQUE: 1 view obtained. FINDINGS: LUNGS: Linear linear atelectasis right mid lung field again noted. There is also patchy opacity in the left lower lobe which may represent infiltrate-they can and pneumonia. Persistent elevation right hemidiaphragm PLEURA: No evidence of significant effusion pneumothorax CARDIOVASCULAR: Mild aortic atherosclerotic calcification present. Heart size borderline enlarged. No pulmonary vascular congestion. OSSEOUS STRUCTURES: No significant abnormalities. VISUALIZED UPPER ABDOMEN: Normal. OTHER FINDINGS: None. IMPRESSION: Linear atelectasis right mid lung field again noted. There is also patchy opacity in the left lower lobe which may represent infiltrate -pneumonia. Persistent elevation right hemidiaphragm
[2018-06-11] MEDS: Azithromycin 500 MG in Sodium Chloride 0.9% 250 ML IVPB SCH (17:23)
[2018-06-12] MEDS: Albuterol-Ipratrop 3 mg / 0.5 (3 ml) UD INH SCH ×4 (07:24→19:11)
[2018-06-12 08:05] LABS: HEMOGLOBIN 11.5 g/dL (12.0-16.0); MEAN CELL VOLUME 89.4 fl (81.0-99.0); MEAN CORPUSCULAR HEMOGLOBIN 29.5 pg (27.0-31.0); RBC 3.91 Mil/uL (3.80-5.20); RED CELL DISTRIBUTION WIDTH 15.3 % (11.5-14.5); WHITE BLOOD COUNT 7.6 K/uL (4.8-10.8)
[2018-06-12] MEDS: Enoxaparin 40 mg Syringe SC SCH (08:16)
[2018-06-12] MEDS: Omega-3-Acid Ethyl Esters 1 GM Cap PO SCH (08:16)
[2018-06-12] MEDS: Multivitamin With Minerals Tab PO SCH (08:16)
[2018-06-12 08:39] LABS: ALB/GLOB RATIO 1.3 (1.0-2.1); ALBUMIN 3.6 g/dL (3.5-5.0); ALT/SGPT 32 U/L (9-52); AST/SGOT 32 U/L (14-36); BLOOD UREA NITROGEN 9 mg/dl (7-17); CALCIUM 9.1 mg/dL (8.4-10.2); GFR NON-AFRICAN AMERICAN > 60
[2018-06-12] MEDS: guaiFENesin-DM 600-30 mg ER Tab PO SCH ×2 (11:16→21:30)
[2018-06-12] MEDS: Azithromycin 500 MG in Sodium Chloride 0.9% 250 ML IVPB SCH (16:55)
[2018-06-13] MEDS: Albuterol-Ipratrop 3 mg / 0.5 (3 ml) UD INH SCH ×4 (07:11→19:25)
[2018-06-13] MEDS: Enoxaparin 40 mg Syringe SC SCH (08:29)
[2018-06-13] MEDS: Omega-3-Acid Ethyl Esters 1 GM Cap PO SCH (08:29)
[2018-06-13] MEDS: Multivitamin With Minerals Tab PO SCH (08:31)
[2018-06-13] MEDS: guaiFENesin-DM 600-30 mg ER Tab PO SCH ×2 (10:24→21:32)
--- NOTE | 2018-06-13 11:30 | CP.PCM.CON ---
History of Present Illness - History of Present Illness History of Present Illness: This 87 year old [place] female was admitted to acute medicine with Atypical CAP. She had responded well to antibiotic therapy and was discharged to TCU for continued therapy, both medical and physical. She appears much improved, but d oes continue to have a congested cough. Her last chest x-ray was improved, but a RUL infiltrate was still seen abutting the minor fissure. She does have some residual cough w/o sputum expectoration. There is no complaint of chest pain or hemoptysis. Mild MATUTE is present. Past Patient History - Infectious Disease Hx of Infectious Diseases: None - Tetanus Immunizations Tetanus Immunization: Unknown - Past Medical History & Family History Past Medical History?: Yes - Past Social History Smoking Status: Never Smoked Chewing Tobacco Use: No Cigar Use: No Alcohol: None Drugs: Denies - CARDIAC Hx Hypercholesterolemia: Yes Hx Hypertension: Yes - PULMONARY Hx Pneumonia: Yes - NEUROLOGICAL Hx Neurological Disorder: No - HEENT Other/Comment: glasses for reading. hard of hearing - RENAL Hx Chronic Kidney Disease: No - ENDOCRINE/METABOLIC Hx Diabetes Mellitus Type 2: Yes - HEMATOLOGICAL/ONCOLOGICAL Hx Blood Disorders: No - INTEGUMENTARY Hx Dermatological Problems: No - MUSCULOSKELETAL/RHEUMATOLOGICAL Hx Falls: Yes Hx Fractures: Yes (l shoulder fx-no surgery) Hx Spinal Stenosis: Yes - GASTROINTESTINAL Hx Gastrointestinal Disorders: No - GENITOURINARY/GYNECOLOGICAL Hx Genitourinary Disorders: No - PSYCHIATRIC Hx Psychophysiologic Disorder: No Hx Substance Use: No - SURGICAL HISTORY Other/Comment: I&D of abdominal abscess, 2011. multiple epidurals for spinal stenosis - ANESTHESIA Hx Anesthesia: Yes Hx Anesthesia Reactions: No Meds Home Medications: Home Medication List Medication Instructions Recorded Confirmed Type Albuterol HFA [Ventolin HFA 90 1 puff IH Q4 PRN #1 puff 06/19/18 Rx mcg/actuation (8 g)] Allergies/Adverse Reactions: Allergies Allergy/AdvReac Type Severity Reaction Status Date / Time No Known Allergies Allergy Verified 06/07/18 11:52 - Medications Medications: Current Medications Acetaminophen (Tylenol 325mg Tab) 650 mg PO Q6 PRN PRN Reason: Pain, Mild (1-3) Albuterol/Ipratropium (Duoneb 3 Mg/0.5 Mg (3 Ml) Ud) 3 ml INH RQID [facility] Last Admin: 06/13/18 07:11 Dose: 3 ml Amlodipine Besylate (Norvasc) 10 mg PO DAILY [facility] Last Admin: 06/13/18 08:30 Dose: 10 mg Aspirin (Ecotrin) 81 mg PO DAILY [facility] Last Admin: 06/13/18 08:28 Dose: 81 mg Atorvastatin Calcium (Lipitor) 20 mg PO HS [facility] Last Admin: 06/12/18 21:30 Dose: 20 mg Enoxaparin Sodium (Lovenox) 40 mg SC DAILY [facility]; Protocol Last Admin: 06/13/18 08:29 Dose: 40 mg Famotidine (Pepcid) 20 mg PO DAILY [facility] Last Admin: 06/13/18 08:30 Dose: 20 mg Gabapentin (Neurontin) 100 mg PO Q8 [facility] Last Admin: 06/13/18 08:36 Dose: 100 mg Guaifenesin/Dextromethorphan (Mucinex-Dm 600-30 Mg) 1 tab PO Q12H [facility] Last Admin: 06/13/18 10:24 Dose: 1 tab Azithromycin 500 mg/ Sodium (Chloride) 250 mls @ 250 mls/hr IVPB DAILY@1700 [facility] Last Admin: 06/12/18 16:55 Dose: 250 mls/hr Ceftriaxone Sodium 1 gm/ (Sodium Chloride) 100 mls @ 100 mls/hr IVPB DAILY@1600 [facility] Last Admin: 06/12/18 16:53 Dose: 100 mls/hr Multivitamins/Minerals (Therapeutic-M Tab) 1 tab PO DAILY [facility] Last Admin: 06/13/18 08:31 Dose: 1 tab Vvkuz-3-[id number] Ethyl Esters (Lovaza) 1 gm PO DAILY [facility] Last Admin: 06/13/18 08:29 Dose: 1 gm Sennosides (Senokot Tab) 8.6 mg PO BID [facility] Last Admin: 06/13/18 08:31 Dose: 8.6 mg Physical Exam - Additional Findings Additional findings: Well nourished and well developed, elderly female in no acute distress. No palpable lymphadenopathy. Awake and alert, well oriented, cooperative. Pharynx pink and moist. Neck supple and trachea midline. No dullness on chest percussion. Breath sounds are slightly diminished in both lungs. Few scattered sonorous rhonchi and occasional rales on the right. No audible wheezing or bronchial breathing. Heart sounds slightly distant, regular. No dependant edema, no cyanosis. Results - Vital Signs Recent Vital Signs: Last Vital Signs Temp 98.3 F 06/13/18 09:00 Pulse 88 06/13/18 10:30 Resp 20 06/13/18 09:00 BP 144/72 06/13/18 09:00 Pulse Ox 93 L 06/13/18 10:30 - Labs Result Diagrams: 06/16/18 10:45 06/16/18 10:45 Assessment & Plan (1) CAP (community acquired pneumonia) Assessment and Plan: Atypical. Continue antibiotic therapy. Follow up chest x-ray tomorrow. Status: Acute Priority: High - Date & Time Date: 06/13/18 Time: 11:30
[2018-06-13] MEDS: Azithromycin 500 MG in Sodium Chloride 0.9% 250 ML IVPB SCH (16:58)
[2018-06-14] MEDS: Albuterol-Ipratrop 3 mg / 0.5 (3 ml) UD INH SCH ×4 (07:42→19:22)
[2018-06-14] MEDS: guaiFENesin-DM 600-30 mg ER Tab PO SCH ×2 (09:35→22:25)
[2018-06-14] MEDS: Multivitamin With Minerals Tab PO SCH (09:35)
[2018-06-14] MEDS: Enoxaparin 40 mg Syringe SC SCH (09:35)
[2018-06-14] MEDS: Omega-3-Acid Ethyl Esters 1 GM Cap PO SCH (09:36)
--- NOTE | 2018-06-14 11:13 | CP.PCM.PN ---
Subjective - Date & Time of Evaluation Date of Evaluation: 06/14/18 Time of Evaluation: 11:10 - Subjective Subjective: Seen during her therapy session. Progressing nicely with PT. Today's CXR shows some residual fluid in the fissure, but overall significantly improved. Few rhonchi are still heard in the right upper lobe, mostly cleared with cough. No bronchial breath sounds or egophony, no audible wheezing. Plan is to complete 10 days of antibiotic therapy. Continue physical therapy as tolerated. Objective - Vital Signs/Intake and Output Vital Signs (last 24 hours): Temp Pulse Resp BP Pulse Ox 98.2 F 62 20 133/67 94 L 06/14/18 10:44 06/14/18 10:44 06/14/18 10:44 06/14/18 10:44 06/14/18 10:44 - Medications Medications: Current Medications Acetaminophen (Tylenol 325mg Tab) 650 mg PO Q6 PRN PRN Reason: Pain, Mild (1-3) Albuterol/Ipratropium (Duoneb 3 Mg/0.5 Mg (3 Ml) Ud) 3 ml INH RQID [facility] Last Admin: 06/14/18 07:42 Dose: 3 ml Amlodipine Besylate (Norvasc) 10 mg PO DAILY [facility] Last Admin: 06/14/18 09:35 Dose: 10 mg Aspirin (Ecotrin) 81 mg PO DAILY [facility] Last Admin: 06/14/18 09:36 Dose: 81 mg Atorvastatin Calcium (Lipitor) 20 mg PO HS [facility] Last Admin: 06/13/18 21:32 Dose: 20 mg Enoxaparin Sodium (Lovenox) 40 mg SC DAILY [facility]; Protocol Last Admin: 06/14/18 09:35 Dose: 40 mg Famotidine (Pepcid) 20 mg PO DAILY [facility] Last Admin: 06/14/18 09:36 Dose: 20 mg Gabapentin (Neurontin) 100 mg PO Q8 [facility] Last Admin: 06/14/18 09:35 Dose: 100 mg Guaifenesin/Dextromethorphan (Mucinex-Dm 600-30 Mg) 1 tab PO Q12H [facility] Last Admin: 06/14/18 09:35 Dose: 1 tab Azithromycin 500 mg/ Sodium (Chloride) 250 mls @ 250 mls/hr IVPB Q24H [facility]; Protocol Ceftriaxone Sodium 1 gm/ (Sodium Chloride) 100 mls @ 100 mls/hr IVPB Q24H [facility]; Protocol Multivitamins/Minerals (Therapeutic-M Tab) 1 tab PO DAILY [facility] Last Admin: 06/14/18 09:35 Dose: 1 tab [id number]-[id number] Ethyl Esters (Lovaza) 1 gm PO DAILY [facility] Last Admin: 06/14/18 09:36 Dose: 1 gm Sennosides (Senokot Tab) 8.6 mg PO BID [facility] Last Admin: 06/14/18 09:35 Dose: 8.6 mg - Labs Labs: 06/12/18 06:00 06/12/18 06:00 Assessment and Plan (1) CAP (community acquired pneumonia) Status: Acute
--- NOTE | 2018-06-14 12:07 | CP.PCM.PN ---
Subjective - Date & Time of Evaluation Date of Evaluation: 06/14/18 Time of Evaluation: 12:07 - Subjective Subjective: hd stable no complaints Objective - Vital Signs/Intake and Output Vital Signs (last 24 hours): Temp Pulse Resp BP Pulse Ox 98.2 F 62 20 133/67 94 L 06/14/18 10:44 06/14/18 10:44 06/14/18 10:44 06/14/18 10:44 06/14/18 10:44 Intake and Output: Gen: WDWN, cooperative HEENT: NCAT, PERRL HEART: RRR S1S2 LUNG: CTAB NO WRR ABD: SOFT NT ND NO MASS EXT: WARM, WELL PERFUSED SKIN: WARM, NO RASHES NEURO: AWAKE, ALERT PSYCH: NORMAL MOOD, NORMAL AFFECT - Medications Medications: Current Medications Acetaminophen (Tylenol 325mg Tab) 650 mg PO Q6 PRN PRN Reason: Pain, Mild (1-3) Albuterol/Ipratropium (Duoneb 3 Mg/0.5 Mg (3 Ml) Ud) 3 ml INH RQID [facility] Last Admin: 06/14/18 07:42 Dose: 3 ml Amlodipine Besylate (Norvasc) 10 mg PO DAILY [facility] Last Admin: 06/14/18 09:35 Dose: 10 mg Aspirin (Ecotrin) 81 mg PO DAILY [facility] Last Admin: 06/14/18 09:36 Dose: 81 mg Atorvastatin Calcium (Lipitor) 20 mg PO HS [facility] Last Admin: 06/13/18 21:32 Dose: 20 mg Enoxaparin Sodium (Lovenox) 40 mg SC DAILY [facility]; Protocol Last Admin: 06/14/18 09:35 Dose: 40 mg Famotidine (Pepcid) 20 mg PO DAILY [facility] Last Admin: 06/14/18 09:36 Dose: 20 mg Gabapentin (Neurontin) 100 mg PO Q8 [facility] Last Admin: 06/14/18 09:35 Dose: 100 mg Guaifenesin/Dextromethorphan (Mucinex-Dm 600-30 Mg) 1 tab PO Q12H [facility] Last Admin: 06/14/18 09:35 Dose: 1 tab Azithromycin 500 mg/ Sodium (Chloride) 250 mls @ 250 mls/hr IVPB Q24H [facility]; Protocol Ceftriaxone Sodium 1 gm/ (Sodium Chloride) 100 mls @ 100 mls/hr IVPB Q24H [facility]; Protocol Multivitamins/Minerals (Therapeutic-M Tab) 1 tab PO DAILY [facility] Last Admin: 06/14/18 09:35 Dose: 1 tab Etwyu-6-Rdqc Ethyl Esters (Lovaza) 1 gm PO DAILY [facility] Last Admin: 06/14/18 09:36 Dose: 1 gm Sennosides (Senokot Tab) 8.6 mg PO BID [facility] Last Admin: 06/14/18 09:35 Dose: 8.6 mg - Labs Labs: 06/12/18 06:00 06/12/18 06:00 Assessment and Plan - Assessment and Plan (Free Text) Plan: 87 yo F with a pmhx of CAD ([place] 11 yrs ago as per chart), HTN, DM and HLD. Patient was admitted to telemetry for Acute hypoxemic respiratory failure, Sepsis, Community acquired Pneumonia on 06/07/18 to 06/10/18. Patient admitte to TCU for IV antibiotic therapy and for debility/deconditioning to receive further PT Plan: #.CAP -C/W O2 2 L NC -Continue Rocephin and Zithromax IV, total 1 week (today day 5 ) -F/U Serology Strep PNA -Influenza a/b negative - Mycoplasma, legionella serology negative -f/u CBC #Deconditioning/debilty secondary to CAP, Hospitalization -C/w PT/OT #. Acute Hypoxemic respiratory failure Improving patient was on high flow 10 L FIO2 50 % , now on O2 2 L NC Duonebs Q4 RTC 1 dose given Solumedrol 125 mg IV on last admission CT chest with IV contrast revealed multifocal PNA, LEft base infiltrate and RLL infiltrate (see report) Pulmonary consult Dr Daly, recommendtion appreciated #. Sepsis (present in admission) -resolved -Leukocytosis resolved WBC 7.0 06/10/18 - secondary to PNA -Clinically improving, afebrile, VS -HR 90s -F/u BC, UC both no growth afte 3 days -Sputum C pending, unable to collect due to poor suptum production -C/W Rocephin and Zithromax IV (today day 5), Patient will need 1 week of IV antibiotic -F/U CBC, BMP in AM #.HTN C/w home meds #. DM accuchecks, Insulin coverage , diabetic diet chronic, POC 165 sliding scale coverage accuchecks hypoglycemic protocol Hga1c 6.3 c/w pioglitazone #HLD chronic ordered lipid panel c/w home meds #Diet Diabetic/heart healthy #DVT PPX SCD now Lovenox 40mg SC QD
--- NOTE | 2018-06-14 12:41 | RAD ---
Date of service: 06/14/2018 HISTORY: Follow-up COMPARISON: 06/11/2018 TECHNIQUE: Chest PA and lateral FINDINGS: LINES AND TUBES: None. LUNG AND PLEURA: There is multifocal linear atelectasis in the right mid lung and both lower lobes. There is more confluent airspace disease in the left lower lobe. The lungs are well inflated. No pleural effusion or pneumothorax. HEART AND MEDIASTINUM: The heart is not enlarged. No aortic atherosclerotic calcifications present. The hilar and mediastinal contours are within normal limits. SKELETAL STRUCTURES: The bony structures are within normal limits for the patient's age. VISUALIZED UPPER ABDOMEN: Normal. OTHER FINDINGS: None. IMPRESSION: Little interval change in multifocal linear atelectasis in the right mid lung and both lower lobes. More confluent airspace disease in the left lower lobe could represent superimposed pneumonia. Macro follow-up
[2018-06-14] MEDS: Azithromycin 500 MG in Sodium Chloride 0.9% 250 ML IVPB SCH (16:18)
[2018-06-15] MEDS: Albuterol-Ipratrop 3 mg / 0.5 (3 ml) UD INH SCH ×4 (07:33→19:04)
[2018-06-15] MEDS: Omega-3-Acid Ethyl Esters 1 GM Cap PO SCH (08:27)
[2018-06-15] MEDS: Enoxaparin 40 mg Syringe SC SCH (08:27)
[2018-06-15] MEDS: guaiFENesin-DM 600-30 mg ER Tab PO SCH ×2 (09:56→21:08)
[2018-06-15] MEDS: Multivitamin With Minerals Tab PO SCH (10:00)
[2018-06-15] MEDS: Azithromycin 500 MG in Sodium Chloride 0.9% 250 ML IVPB SCH (16:21)
[2018-06-16] MEDS: Albuterol-Ipratrop 3 mg / 0.5 (3 ml) UD INH SCH ×4 (07:27→19:07)
[2018-06-16] MEDS: Enoxaparin 40 mg Syringe SC SCH (08:37)
[2018-06-16] MEDS: Omega-3-Acid Ethyl Esters 1 GM Cap PO SCH (08:38)
[2018-06-16] MEDS: Multivitamin With Minerals Tab PO SCH (08:39)
[2018-06-16] MEDS: guaiFENesin-DM 600-30 mg ER Tab PO SCH ×2 (10:00→21:13)
[2018-06-16 11:11] LABS: HEMOGLOBIN 12.1 g/dL (12.0-16.0); MEAN CELL VOLUME 91.2 fl (81.0-99.0); MEAN CORPUSCULAR HEMOGLOBIN 29.9 pg (27.0-31.0); MEAN CORPUSCULAR HGB CONC 32.8 g/dL (33.0-37.0); RBC 4.03 Mil/uL (3.80-5.20); RED CELL DISTRIBUTION WIDTH 14.9 % (11.5-14.5); WHITE BLOOD COUNT 6.1 K/uL (4.8-10.8)
[2018-06-16 11:21] LABS: BLOOD UREA NITROGEN 10 mg/dl (7-17); CALCIUM 9.5 mg/dL (8.4-10.2); GFR NON-AFRICAN AMERICAN > 60
--- NOTE | 2018-06-16 11:26 | CP.PCM.PN ---
Subjective - Date & Time of Evaluation Date of Evaluation: 06/16/18 Time of Evaluation: 11:23 - Subjective Subjective: Seen on rounds in the gym this morning. Appears to be doing well. Claims she feels a little weak in the legs today. Vital signs have remained stable. Oxygenation is 94% on room air presently. Breath sounds are diminished equally in both lungs. Rare scattered rhonchi and dry rales, no wheezes. Will monitor progress with repeat CBC and CXR today. Objective - Vital Signs/Intake and Output Vital Signs (last 24 hours): Temp Pulse Resp BP Pulse Ox 98.1 F 76 20 143/79 95 06/16/18 07:54 06/16/18 08:38 06/16/18 07:54 06/16/18 08:38 06/16/18 07:54 - Medications Medications: Current Medications Acetaminophen (Tylenol 325mg Tab) 650 mg PO Q6 PRN PRN Reason: Pain, Mild (1-3) Albuterol/Ipratropium (Duoneb 3 Mg/0.5 Mg (3 Ml) Ud) 3 ml INH RQID [facility] Last Admin: 06/16/18 07:27 Dose: 3 ml Amlodipine Besylate (Norvasc) 10 mg PO DAILY [facility] Last Admin: 06/16/18 08:38 Dose: 10 mg Aspirin (Ecotrin) 81 mg PO DAILY [facility] Last Admin: 06/16/18 08:39 Dose: 81 mg Atorvastatin Calcium (Lipitor) 20 mg PO HS [facility] Last Admin: 06/15/18 21:08 Dose: 20 mg Enoxaparin Sodium (Lovenox) 40 mg SC DAILY [facility]; Protocol Last Admin: 06/16/18 08:37 Dose: 40 mg Famotidine (Pepcid) 20 mg PO DAILY [facility] Last Admin: 06/16/18 08:39 Dose: 20 mg Gabapentin (Neurontin) 100 mg PO Q8 [facility] Last Admin: 06/16/18 08:37 Dose: 100 mg Guaifenesin/Dextromethorphan (Mucinex-Dm 600-30 Mg) 1 tab PO Q12H [facility] Last Admin: 06/15/18 21:08 Dose: 1 tab Azithromycin 500 mg/ Sodium (Chloride) 250 mls @ 250 mls/hr IVPB Q24H [facility]; Protocol Last Admin: 06/15/18 16:21 Dose: 250 mls/hr Ceftriaxone Sodium 1 gm/ (Sodium Chloride) 100 mls @ 100 mls/hr IVPB Q24H [facility]; Protocol Last Admin: 06/15/18 16:23 Dose: 100 mls/hr Multivitamins/Minerals (Therapeutic-M Tab) 1 tab PO DAILY [facility] Last Admin: 06/16/18 08:39 Dose: 1 tab Zmlqu-1-Akgd Ethyl Esters (Lovaza) 1 gm PO DAILY [facility] Last Admin: 06/16/18 08:38 Dose: 1 gm Sennosides (Senokot Tab) 8.6 mg PO BID [facility] Last Admin: 06/16/18 08:37 Dose: 8.6 mg - Labs Labs: 06/12/18 06:00 06/16/18 10:45 Assessment and Plan (1) CAP (community acquired pneumonia) Status: Acute
--- NOTE | 2018-06-16 14:35 | CP.PCM.PN ---
Subjective - Date & Time of Evaluation Date of Evaluation: 06/16/18 Time of Evaluation: 11:45 - Subjective Subjective: Patient seen and examined. Denied SOB but continued to have weakness of both legs Objective - Vital Signs/Intake and Output Vital Signs (last 24 hours): Temp Pulse Resp BP Pulse Ox 98.1 F 83 20 143/79 97 06/16/18 07:54 06/16/18 10:34 06/16/18 07:54 06/16/18 08:38 06/16/18 10:34 - Medications Medications: Current Medications Acetaminophen (Tylenol 325mg Tab) 650 mg PO Q6 PRN PRN Reason: Pain, Mild (1-3) Albuterol/Ipratropium (Duoneb 3 Mg/0.5 Mg (3 Ml) Ud) 3 ml INH RQID [facility] Last Admin: 06/16/18 07:27 Dose: 3 ml Amlodipine Besylate (Norvasc) 10 mg PO DAILY [facility] Last Admin: 06/16/18 08:38 Dose: 10 mg Aspirin (Ecotrin) 81 mg PO DAILY [facility] Last Admin: 06/16/18 08:39 Dose: 81 mg Atorvastatin Calcium (Lipitor) 20 mg PO HS [facility] Last Admin: 06/15/18 21:08 Dose: 20 mg Enoxaparin Sodium (Lovenox) [address] [facility]; Protocol Last Admin: 06/16/18 08:37 Dose: 40 mg Famotidine (Pepcid) [address] [facility] Last Admin: 06/16/18 08:39 Dose: 20 mg Gabapentin (Neurontin) 100 mg PO Q8 [facility] Last Admin: 06/16/18 08:37 Dose: 100 mg Guaifenesin/Dextromethorphan (Mucinex-Dm 600-30 Mg) 1 tab PO Q12H [facility] Last Admin: 06/16/18 10:00 Dose: 1 tab Azithromycin 500 mg/ Sodium (Chloride) 250 mls @ 250 mls/hr IVPB Q24H [facility]; Protocol Last Admin: 06/15/18 16:21 Dose: 250 mls/hr Ceftriaxone Sodium 1 gm/ (Sodium Chloride) 100 mls @ 100 mls/hr IVPB Q24H [facility]; Protocol Last Admin: 06/15/18 16:23 Dose: 100 mls/hr Multivitamins/Minerals (Therapeutic-M Tab) 1 tab PO DAILY [facility] Last Admin: 06/16/18 08:39 Dose: 1 tab [id number] Ethyl Esters (Lovaza) [address] [facility] Last Admin: 06/16/18 08:38 Dose: 1 gm Sennosides (Senokot Tab) 8.[address] [facility] Last Admin: 06/16/18 08:37 Dose: 8.6 mg - Labs Labs: 06/16/18 10:45 06/16/18 10:45 - Constitutional Appears: No Acute Distress - Head Exam Head Exam: ATRAUMATIC - Eye Exam Eye Exam: absent: Scleral icterus - ENT Exam ENT Exam: Mucous Membranes Moist - Neck Exam Neck Exam: absent: Meningismus - Respiratory Exam Respiratory Exam: absent: Rales, Rhonchi, Wheezes, Respiratory Distress - Cardiovascular Exam Cardiovascular Exam: REGULAR RHYTHM, +S1, +S2 - GI/Abdominal Exam GI & Abdominal Exam: Soft. absent: Tenderness - Rectal Exam Rectal Exam: Deferred - Neurological Exam Neurological Exam: Alert, Oriented x3 - Psychiatric Exam Psychiatric exam: Normal Affect - Skin Skin Exam: Dry, Intact Assessment and Plan - Assessment and Plan (Free Text) Assessment: 87 yo female with history of CAD, HTN, DM2 and HLD was admitted because of acute respiratory failure secondary to CAP on 06/07/2018. She was transferred to TCU for further therapy and continuation of IV antibiotics. 1. Community Acquired Pneumonia continue IV Rocephin and Zithromax (10th day today) O2 sat on RA was 97% patient breathing comfortably and easy repeat CXray today showed no active disease 2. Deconditioning/debilty continue PT/OT 3. CAD asymptomatic continue statin, ASA 4. HTN BP stable continue Amlodipine 5. DM2 BS controlled without medications on diabetic diet HgA1C: 6.3 6. HLD continue statin 7. DVT prophylaxis on Lovenox
--- NOTE | 2018-06-16 14:40 | RAD ---
Date of service: 06/16/2018 HISTORY: Pneumonia COMPARISON: 06/14/2018 TECHNIQUE: Chest PA and lateral FINDINGS: LINES AND TUBES: None. LUNG AND PLEURA: The lungs are well inflated. There is persistent discoid atelectasis in the right mid lung. Again seen is linear atelectasis in the left lower lobe. No pleural effusion or pneumothorax. HEART AND MEDIASTINUM: Mild cardiomegaly. There are aortic atherosclerotic calcifications present. The hilar and mediastinal contours are within normal limits. SKELETAL STRUCTURES: The bony structures are within normal limits for the patient's age. VISUALIZED UPPER ABDOMEN: Normal. OTHER FINDINGS: None. IMPRESSION: No active pulmonary disease. No significant interval change.
[2018-06-16] MEDS: Azithromycin 500 MG in Sodium Chloride 0.9% 250 ML IVPB SCH (16:06)
[2018-06-17] MEDS: Albuterol-Ipratrop 3 mg / 0.5 (3 ml) UD INH SCH ×4 (07:56→19:21)
[2018-06-17] MEDS: Enoxaparin 40 mg Syringe SC SCH (08:26)
[2018-06-17] MEDS: Omega-3-Acid Ethyl Esters 1 GM Cap PO SCH (08:27)
[2018-06-17] MEDS: Multivitamin With Minerals Tab PO SCH (08:28)
[2018-06-17] MEDS: guaiFENesin-DM 600-30 mg ER Tab PO SCH ×2 (12:06→21:21)
[2018-06-18] MEDS: Albuterol-Ipratrop 3 mg / 0.5 (3 ml) UD INH SCH ×4 (07:21→19:49)
[2018-06-18] MEDS: Enoxaparin 40 mg Syringe SC SCH (09:07)
[2018-06-18] MEDS: Omega-3-Acid Ethyl Esters 1 GM Cap PO SCH (09:07)
[2018-06-18] MEDS: guaiFENesin-DM 600-30 mg ER Tab PO SCH ×2 (09:08→21:04)
[2018-06-18] MEDS: Multivitamin With Minerals Tab PO SCH (09:08)
[2018-06-19 08:11] VITALS: BP 146/71; PULSE 76; TEMP 97.5; O2SAT 98
[2018-06-19] MEDS: Enoxaparin 40 mg Syringe SC SCH (08:33)
[2018-06-19] MEDS: Omega-3-Acid Ethyl Esters 1 GM Cap PO SCH (08:33)
[2018-06-19] MEDS: Multivitamin With Minerals Tab PO SCH (08:34)
[2018-06-19] MEDS: Albuterol-Ipratrop 3 mg / 0.5 (3 ml) UD INH SCH (08:57)
[2018-06-19] MEDS: guaiFENesin-DM 600-30 mg ER Tab PO SCH (10:00)
--- NOTE | 2018-06-19 10:37 | CP.PCM.DIS ---
Provider - Provider Date of Admission: 06/10/18 22:29 Attending physician: Stephan Garrett MD Consults: 06/10/18 23:52 Pulmonology Consult Routine Comment: Consulting Provider: Jay Daly Consulting Physician: Jay Daly Reason for Consult: Pneumonia 06/11/18 04:18 Social Work Referral Routine Comment: evaluate home needs Physician Instructions: Reason For Exam: new admission 06/11/18 04:20 Wound Care [Nursing Referral for Wound Care] Routine Comment: Physician Instructions: Reason For Exam: hesham score - 18 Time Spent in preparation of Discharge (in minutes): 25 Diagnosis - Discharge Diagnosis (1) CAP (community acquired pneumonia) Status: Acute Priority: High Comment: completed 2 weeks course of Rocephin and Zithromax. repeat CXray showed resolution of pneumonia (2) CAD (coronary artery disease) Status: Chronic Comment: stable. continue ASA and statin (3) HTN (hypertension) Status: Chronic Comment: BP controlled. continue Amlodipine (4) DM2 (diabetes mellitus, type 2) Status: Chronic Comment: BS controlled by diet alone (5) HLD (hyperlipidemia) Status: Acute Comment: on statin Hospital Course - Lab Results Lab Results: Most Recent Lab Values WBC 6.1 K/uL (4.8-10.8) 06/16/18 10:45 RBC 4.03 Mil/uL (3.80-5.20) 06/16/18 10:45 Hgb 12.1 g/dL (12.0-16.0) 06/16/18 10:45 Hct 36.7 % (34.0-47.0) 06/16/18 10:45 MCV 91.2 fl (81.0-99.0) 06/16/18 10:45 MCH 29.9 pg (27.0-31.0) 06/16/18 10:45 MCHC 32.8 g/dL (33.0-37.0) L 06/16/18 10:45 RDW 14.9 % (11.5-14.5) H 06/16/18 10:45 Plt Count 322 K/uL (130-400) 06/16/18 10:45 ESR 73 mm/hr (0-30) H 06/12/18 06:00 Sodium 140 mmol/l (132-148) 06/16/18 10:45 Potassium 3.8 MMOL/L (3.6-5.0) 06/16/18 10:45 Chloride 99 mmol/L (98-107) 06/16/18 10:45 Carbon Dioxide 28 mmol/L (22-30) 06/16/18 10:45 Anion Gap 17 (10-20) 06/16/18 10:45 BUN 10 mg/dl (7-17) 06/16/18 10:45 Creatinine 0.6 mg/dl (0.7-1.2) L 06/16/18 10:45 Est GFR ( Amer) > 60 06/16/18 10:45 Est GFR (Non-Af Amer) > 60 06/16/18 10:45 POC Glucose (mg/dL) 130 mg/dL (65-110) H 06/11/18 10:49 Random Glucose 121 mg/dL (65-105) H 06/16/18 10:45 Calcium 9.5 mg/dL (8.4-10.2) 06/16/18 10:45 Phosphorus 3.8 mg/dl (2.5-4.5) 06/12/18 06:00 Magnesium 2.1 MG/DL (1.6-2.3) 06/12/18 06:00 Total Bilirubin 0.5 mg/dl (0.2-1.3) 06/12/18 06:00 AST 32 U/L (14-36) 06/12/18 06:00 ALT 32 U/L (9-52) 06/12/18 06:00 Alkaline Phosphatase 52 U/L (38-126) 06/12/18 06:00 Total Protein 6.5 G/DL (6.3-8.2) 06/12/18 06:00 Albumin 3.6 g/dL (3.5-5.0) 06/12/18 06:00 Globulin 2.9 gm/dL (2.2-3.9) 06/12/18 06:00 Albumin/Globulin Ratio 1.3 (1.0-2.1) 06/12/18 06:00 - Hospital Course Hospital Course: 87 yo female with history of CAD, HTN, DM2 and HLD was admitted on 06/07/2018 because of acute respiratory failure secondary to community acquired pneumonia. Patient was put on IV antibiotics empirically (Rocephin and Zithromax) and improved. She was transferred to TCU for continuation of the IV antibiotics and further therapy. Patient did well and now is ready for discharge. Discharge Exam - Head Exam Head Exam: ATRAUMATIC - Eye Exam Eye Exam: Normal appearance - ENT Exam ENT Exam: Mucous Membranes Moist - Respiratory Exam Respiratory Exam: absent: Rales, Rhonchi, Wheezes, Respiratory Distress - Cardiovascular Exam Cardiovascular Exam: REGULAR RHYTHM, +S1, +S2 - GI/Abdominal Exam GI & Abdominal Exam: Soft. absent: Tenderness - Rectal Exam Rectal Exam: Deferred - Neurological Exam Neurological exam: Alert, Oriented x3 - Psychiatric Exam Psychiatric exam: Normal Affect - Skin Skin Exam: Dry, Intact Discharge Plan - Follow Up Plan Condition: GOOD Disposition: HOME/ ROUTINE
== END 2018-06-19 12:35 | disposition home or self-care (01) | DRG 195 ==
LOC: H.TCU 22:29
PROVIDERS: ADMIT Hospitalist; ATTEND Hospitalist
PROC: 3E03329 Introduction of Other Anti-infective into Peripheral Vein, Percutaneous Approach (ICD-10-PCS; principal; 2018-06-10)
PROC: F07Z9FZ Gait Training/Functional Ambulation Treatment using Assistive, Adaptive, Supportive or Protective Equipment (ICD-10-PCS; 2018-06-10)
PROC: F08Z4FZ Home Management Treatment using Assistive, Adaptive, Supportive or Protective Equipment (ICD-10-PCS; 2018-06-10)
PROC: F07M6FZ Therapeutic Exercise Treatment of Musculoskeletal System - Whole Body using Assistive, Adaptive, Supportive or Protective Equipment (ICD-10-PCS; 2018-06-11)
DX: J18.9 Pneumonia, unspecified organism (principal); I10 Essential (primary) hypertension; I25.10 Atherosclerotic heart disease of native coronary artery without angina pectoris; E11.9 Type 2 diabetes mellitus without complications; E78.5 Hyperlipidemia, unspecified; E78.00 Pure hypercholesterolemia, unspecified; Z87.01 Personal history of pneumonia (recurrent)